=== PATIENT | female | born 1995 | race Caucasian/White ===

== ENCOUNTER 2024-05-27 18:46 | Outpatient (OUT) | payer OTHER, SELFPAY ==
--- NOTE | 2024-05-27 18:56 | US_ITS ---
The [address] [address] Patient Name: ANNE GREGORY MRN: [id number] date: 1995 Sex: F Assigned Patient Location: Current Patient Location: Accession/Order Number: [id number] Exam Date: 05/27/2024 19:00 Report Date: 05/30/2024 09:03 At the request of: RUT CONNER Procedure: US OB growth EXAMINATION: US OB growth HISTORY: RELATED CONDITION IN THIRD TRIMESTER O26.93 COMPARISON: No relevant comparison available. FINDINGS: Heart Rate: 129.81 bpm Amniotic Fluid Volume: 15.5 cm; normal range Number: 1 Position: CEPHALIC BIOMETRY: BPD: 7.52 cm; 30 weeks 1 day; 78.20 % HC: 27.79 cm; 30 weeks 3 days; 64.70 % AC: 24.71 cm; 29 weeks 0 days; 45.80 % FL: 5.09 cm; 27 weeks 2 days; 5 % EFW: 1253.94 g; 28 % FL/AC: 20.59 FL/BPD: 67.64 HC/AC: 1.12 GESTATIONAL AGE: Age by EDC: 28 weeks 6 days CARMEN by EDC: 2024-08-13 Age by US: 29 weeks 2 days CARMEN by US: 2024-08-10 US/US OB growth IMPRESSION: 1. Single live intrauterine with growth detailed above. 2. Femur length is at 5th percentile. Electronically authenticated by: JELLY CHIANG Date: 05/30/2024 09:03
== END 2024-05-27 18:47 | disposition home or self-care (01) ==
PROVIDERS: Visit Provider Midwife
DX: O26.93 Pregnancy related conditions, unspecified, third trimester (principal); Z3A.28 28 weeks gestation of pregnancy
CPT/HCPCS: 76816

== ENCOUNTER 2024-08-02 10:06 | Inpatient (IN) | payer OTHER, SELFPAY ==
[2024-08-02] VITALS (12 sets, daily range): BP systolic 111–146; BP diastolic 71–86; PULSE 49–71; TEMP 36–36.8
--- OUTSIDE RECORDS SUMMARY | 2024-08-02 10:28 | XMS_ITS | CCD ---
Author Organization [facility] Care Team Providers [employer] Professor Name Role Phone BRAD GILES Unavailable Unavailable BRAD GILES Unavailable Unavailable MD Brad Giles Attending Provider [phone] PCP, No Primary Care Provider UnavailMD Brad Yates Attending Provider [phone] PCP, No Primary Care Provider MD Brad Corbin Primary Care Provider MD Brad Giles Primary Care Provider [phone] MD Brad Giles Attending Provider [phone] MD Brad Giles Admit Provider Brad Giles Attending Unavailable PCP, No Primary Care Unavailable Brad Giles Attending Unavailable Tisha, Brad Primary Care Unavailable Brad Giles Attending Unavailable Tisha, Brad Primary Care Unavailable Brad Giles Attending Unavailable Tisha, Brad Primary Care Unavailable Brad Giles Admitting Unavailable Unavailable Primary Care Provider UnavailEleanor Olmstead Primary Care Provider [phone] RUT COLE Attending Unavailable FLORO, RUT L Referring Unavailable FLORO, RUT L Attending Unavailable FLORO, RUT L Attending Unavailable FLORO, URT L Attending Unavailable FLORO, RUT L Attending Unavailable FLORO, RUT L Referring Unavailable FLORO, RUT L Attending Unavailable FLORO, RUT L Attending Unavailable FLORO, RUT L Referring Unavailable FLORO, RUT L Attending Unavailable FLORO, RUT L Attending Unavailable Allergies Allergy Classification Reported Allergen(s) Allergy Type Date of Onset Reaction(s) Facility (20 sources) Amoxicillin Drug Allergy 11-02-2019 [facility] Medications Current Medications Medication Drug Class(es) Dates Sig (Normalized) Sig (Original) Prenat.Vits,Kirsten,Mi z-Vhqz-Iuctc (1 source) Start: 08-12-2023 take 1 tablet by mouth once daily Prenat.Vits,Kirsten,M yz-Gguo-Wwlwx Active 1 TAB PO Daily August 12, 2023 12:00am Uyynujgn-Qzb-Dc-FA ( 1 + IRON PO) (20 sources) Vvjhsgon-Zjg-Ki-F A ( 1 + IRON PO) Take by mouth Active sertraline 100 mg oral tablet (20 sources) Serotonin Reuptake Inhibitor Start: 12-10-2023 End: 06-07-2024 take 1 tablet by mouth in the morning sertraline (Zoloft) 100 MG tablet Take 100 mg by mouth in the morning. 12/10/2023 Active Start: 08-12-2023 take 100 mg by mouth once roland y Sertraline Active 100 MG PO Daily August 12, 2023 12:00am Problems Problem Classification Problem Date Documented Da te Episodic/Chronic Menstrual disorders (2 sources) Amenorrhea; Translations: [Amenorrhea, unspecified] 12-23-2023 Chronic Other complications of (4 sources) Finding related to ; Translations: [ related conditions, unspecified, second trimester] 03-07-2024 Episodic Other and delivery including normal (18 sources) Vaginal delivery; Translations: [Term ] Onset: 01-20-2023 08-14-2023 Episodic Other screening for suspected conditions (not mental disorders or infectious disease) (4 sources) Patient encounter status; Translations: [Encounter for screening for diabetes mellitus] 05-09-2024 Episodic Spondylosis; intervertebral disc disorders; other back problems (2 sources) Low back pain; Translations: [Low back pain, unspecified back pain laterality, unspecified chronicity, unspecified whether sciatica present] 06-14-2024 Episodic Unclassified (2 sources) Labor finding; Translations: [Active labor] 08-12-2023 Results Test Name Value Interpretation Reference Range Facility US OB FOLLOW UP TRANSABDOMIN AL APPROACHon 07-05-2024 US OB FOLLOW UP TRANSABDOMINAL APPROACH TITLE OF EXAM: OB Ultrasound: REASON FOR EXAM: Recheck femur length. COMPARISON: 03/22/2024 TECHNIQUE: Grayscale and M-mode Doppler imaging is performed. FINDINGS: heart rate: 143 bpm ANIKET: 13.2 cm (7.9-24.9) BPD: 8.5 cm HC: 31.0 cm AC: 30.5 cm FL: 6.6 cm GA for sonogram: 33.9 wk (31.5-36.4) CARMEN: 08/11/2024 Weight Estimate: Weight: 2402 gm / 5 lbs, 4 oz (5972-8316 gm) Hadlock Normal: 2543 gm (5412-7155 gm) Hadlock Wt%: 34% for 34.8 wk (GA selected) 43% for 34.4 wks (LMP) Age by LMP: 34 w 3 d Age US today: 34 w 2 d CARMEN by LMP: 08/13/2024 CARMEN US today: 08/14/2024 Gestation: Single Position: Cephalic Placental Location: Anterior Placental Grade: 2 Somatic Movement: Yes Fluid-filled stomach noted. Beating heart is demonstrated with rate of 143 bpm. IMPRESSION: 1. Single live intrauterine gestation in cephalic position estimated at 33.9 weeks. This is concordant with the provided clinical dates and the prior ultrasound. 2. Growth parameters appear generally symmetric. Dictated and transcribed 07/05/24/dpd This report has been electronically signed and approved by the interpreting radiologist. Normal Not Available US OB GROWTHon 05-30-2024 [place] [address] Ultrasound Report Signed Patient: ANNE GREGORY MR#: [id number] : 1995 Acct:[id number] Age/Sex: 29 / F ADM Date: 05/27/24 Loc: US Attending Dr: RUT COLE APRN, CNM Ordering Physician: RUT COLE APRN, CNM Date of Service: 05/27/24 Procedure(s): US OB growth Accession Number(s): [id number] cc: RUT COLE APRN, CNM; Physician,Non-Staff M.D. The [address] [address] Patient Name: ANNE GREGORY MRN: [id number] date: 1995 Sex: F Assigned Patient Location: US Current Patient Location: Accession/Order Number: [id number] Exam Date: 05/27/2024 19:00 Report Date: 05/30/2024 09:03 At the request of: RUT COLE Procedure: US OB growth EXAMINATION: US OB growth HISTORY: RELATED CONDITION IN THIRD TRIMESTER O26.93 COMPARISON: No relevant comparison available. FINDINGS: Heart Rate: 129.81 bpm Amniotic Fluid Volume: 15.5 cm; normal range Number: 1 Position: CEPHALIC BIOMETRY: BPD: 7.52 cm; 30 weeks 1 day; 78.20 % HC: 27.79 cm; 30 weeks 3 days; 64.70 % AC: 24.71 cm; 29 weeks 0 days; 45.80 % FL: 5.09 cm; 27 weeks 2 days; 5 % EFW: 1253.94 g; 28 % FL/AC: 20.59 FL/BPD: 67.64 HC/AC: 1.12 GESTATIONAL AGE: Age by EDC: 28 weeks 6 days CARMEN by EDC: 2024-08-13 Age by US: 29 weeks 2 days CARMEN by US: 2024-08-10 US/US OB growth IMPRESSION: 1. Single live intrauterine with growth detailed above. 2. Femur length is at 5th percentile. Electronically authenticated by: NEERAJ KHALIL Date: 05/30/2024 09:03 Dictated By: Neeraj Khalil M.D. Signed By: 05/30/24905 DD/ 2 TD/TT: Administrative Assistant Coordinator: [facility] Radiology, Radiologist, MD - 05/31/2024 [place] [address] Ultrasound Report Signed Patient: ANNE GREGORY MR#: [id number] : 1995 Acct:[id number] Age/Sex: 29 / F ADM Date: 05/27/24 Loc: US Attending Dr: RUT COLE APRN, CNM Ordering Physician: RUT COLE APRN, CNM Date of Service: 05/27/24 Procedure(s): US OB growth Accession Number(s): [id number] cc: RUT COLE APRN, CNM; Physician,Non-Staff [place] [address] Patient Name: ANNE GREGORY MRN: [facility]:[id number] date: 1995 Sex: F Assigned Patient Location: Current Patient Location: Accession/Order Number: [id number] Exam Date: 05/27/2024 19:00 Report Date: 05/30/2024 09:03 At the request of: RUT COLE Procedure: US OB growth EXAMINATION: US OB growth HISTORY: RELATED CONDITION IN THIRD TRIMESTER O26.93 COMPARISON: No relevant comparison available. FINDINGS: Heart Rate: 129.81 bpm Amniotic Fluid Volume: 15.5 cm; normal range Number: 1 Position: CEPHALIC BIOMETRY: BPD: 7.52 cm; 30 weeks 1 day; 78.20 % HC: 27.79 cm; 30 weeks 3 days; 64.70 % AC: 24.71 cm; 29 weeks 0 days; 45.80 % FL: 5.09 cm; 27 weeks 2 days; 5 % EFW: 1253.94 g; 28 % FL/AC: 20.59 FL/BPD: 67.64 HC/AC: 1.12 GESTATIONAL AGE: Age by EDC: 28 weeks 6 days CARMEN by EDC: 2024-08-13 Age by US: 29 weeks 2 days CARMEN by US: 2024-08-10 US/US OB growth IMPRESSION: 1. Single live intrauterine with growth detailed above. 2. Femur length is at 5th percentile. Electronically authenticated by: NEERAJ KHALIL Date: 05/30/2024 09:03 Dictated By: Neeraj Khalil M.D. Signed By: 05/30/24905 DD/ 2 TD/TT: Administrative Assistant Coordinator: [facility] Radiology Study observation (narrative) [facility] OB GROWTHOrdered By: Crystal richardoghaylee Radiology on 05-30-2024 [facility] Work Phone: US OB 14+ WEEKS ANATOMY SCAN on 03-21-2024 US OB 14+ WEEKS ANATOMY SCAN TITLE OF EXAM: OB Ultrasound: REASON FOR EXAM: Survey. TECHNIQUE: Grayscale and color Doppler imaging is performed. Measurements: heart rate: 143 bpm ANIKET: 13.3 cm (9.2-21.1) BPD: 4.3 cm HC: 16.9 cm AC: 14.2 cm FL: 3.0 cm GA for sonogram: 19.3 wk (17.8-20.7) Cervix length: 4.1 cm CARMEN: 08/11/2024 Weight Estimate: Weight: 291 gm / 0 lbs, 10 oz (248-334 gm) Hadlock Normal: 317 gm (263-371 gm) Hadlock Wt%: 27% for 19.8 wks CLINICAL SUMMARY: A single intrauterine is noted in kristin breech presentation. Four chamber heart is observed with a heart rate of 143 BPM. size is normal. growth: Consistent with normal growth. motion and organs seen: Normal intracranial anatomy is seen. tone is noted. body and limb movements are observed. spine, limbs, bladder, kidneys, and stomach are observed and within normal limits. Umbilical cord insertion and three vessel cord are identified and within normal limits. bowel, lungs, genitalia, four limbs are visualized and normal in appearance. Placenta is located anteriorly. Placenta is Grade 0/III Amniotic fluid volume is normal. Dictated and transcribed 03/22/24/dpd This report has been electronically signed and approved by the interpreting radiologist. Normal Not Available HCG ( test) Ql (U)o n 12-23-2023 Interpretation and review of laboratory results Abnormal [facility] Preg Test, Ur Positive [facility] OB < 14 WEEKS EARLYon US OB < 14 WEEKS EARLY TITLE OF EXAM: OB Ultrasound: REASON FOR EXAM: Dating. TECHNIQUE: Grayscale imaging is performed. Measurements: heart rate: 134 bpm Sac: 1.5 cm CRL: 0.9 cm GA for sonogram: 6.9 wk (06.4-07.5) CARMEN: 08/11/2024 Maternal Anatomy: Uterus: 9.7 x 7.0 x 5.4 cm Cervix: 3.9 cm Left Ovary: 2.7 x 2.2 x 2.2 cm Vol (cc): 6.8 Clinical Summary: Early intrauterine is seen with positive cardiac activity. heart is observed with a heart rate of 134 BPM. Yolk sac is identified. Rt ovary obscured. TECH NOTES: UT hypoechoic area 1.2 x 0.9 x 0.7 cm, probably tiny subchorionic hemorrhage. Dictated and transcribed 12/24/23/dpjessa This report has been electronically signed and approved by the interpreting radiologist. Electronically Signed Brad Pope M.D. 2023-12-24 16:43:34 Normal Not Available MARIJUANA, GCMS, URINEon MARIJUANA, GCMS, URINE 140 ng/mL Normal [facility] Comment on above: Result Comment: Brie conti Metabolite detected is consistent with exposure to Marijuana (THC) and/or hemp derived products. Some jurisdictions do not include hemp within the definition of Marijuana. Limit of quantitation: Marijuana Metabolite 5 ng/mL Reference Range: negative This test was developed and its analytical performance characteristics have been determined by [employer] [place], [place]. It has not been cleared or approved by the U.S. Food and Drug Administration. This assay has been validated pursuant to the CLIA regulations and is used for clinical purposes. Test Performed by [facility], [employer] [facility], [address] [place] [address] Jayesh Jackson M.D., Ph.D., Director of Laboratories , CLIA [id number] Performed By: #### M TREY [id number] ####[facility] [place] [address] PLiana 08-14-2023 P.DS [place] [address] [place] [address] Discharge Summary Signed Patient Name: Anne Gregory [id number] Date of : 1995 Age/Sex: 28 / F Location: OB Department Attending physician: Brad Giles MD DS: Diagnosis Discharge Diagnosis (1) Term : Status: Acute (2) Active labor: Status: Acute Procedures Performed Other Procedures Performed: Spontaneous vaginal delivery Exam: OB Physical Exam Vital signs: Vital Signs - 24 hr 08/13/23 14:15 08/13/23 20:00 08/14/23 03:15 Temperature 98.6 F 98.9 F 98.6 F Pulse Rate [Right] 61 74 64 Respiratory Rate 16 18 16 Blood Pressure [Right Arm] 125/76 129/85 114/69 Oxygen Delivery Method Room Air Room Air Room Air Routine Respiratory Exam Comments: Clear to auscultation Routine Cardiovascular Exam Comments: Regular rate and rhythm without murmur Routine Abdominal Exam Comments: Uterus 3 cm below the umbilicus. Firm and nontender. Routine Extremities Exam Comments: Homans' sign negative. No pedal edema. Discharge Plan Admission Infomation Date of Admission: 08/12/23 14:55 Primary Care Provider: Brad Giles Attending Provider: Brad Giles Discharge (Provider) Patient Disposition: Home, Self-Care Discharge Orders: Discharge/Release Order (Routine); Ordered 08/14/23 Ordered By: Brad Giles Condition: Good Assessment (Hospital Narrative): Patient is a 28-year-old 3 para 2 a positive white female who was admitted with active labor. She had artificial rupture membranes performed at 6 cm dilatation and progressed to spontaneous vaginal delivery without complications. course was uncomplicated. hemoglobin was 11.2. Patient was discharged in good condition. Discharge Medications: Continued sertraline 100 mg tablet 100 mg PO DAILY prenat.vits,kirsten,min -iron-folic Tablet 1 tab PO DAILY Activity: may climb stairs and september shower Diet: regular diet Follow-Up Orders Follow-Up Appointments: Brad Giles MD [Primary Care Provider] - 6 Weeks Dictated By: Brad Giles MD 08/14/23 0800 Signed By: 08/14/23 0801 Cosigned By (if applicable): [id number] cc: Brad Giles MD Normal [facility] Blood erythrocytes count (nu mber/volume)Ordered By: Brad Giles on 08-13-2023 RBC (Bld) [#/Vol] 3.84 10'6/uL Low 3.85-4.[address] [facility] Complete Blood Count no Diff on 08-13-2023 MCH (RBC) [Entitic mass] 29.1 pg Normal 27.8-33.2 [facility] Comment on above: Performed By: #### C BCND ####[place] [address] [facility] [place] [address] Erythrocyte distribution width (RBC) [Ratio] 12.4 % Normal 12.2-15.8 [facility] Comment on above: Performed By: #### C BCND ####[place] [address] [place] [address] Hematocrit (Bld) [Volume fraction] 33.0 % Low 34.6-44.1 [facility] Comment on above: Performed By: #### C BCND ####[place] [address] [facility] [place] [address] Hemoglobin (Bld) [Mass/Vol] 11.2 g/dL Low 11.7-14.9 [facility] Comment on above: Performed By: #### C BCND ####[place] [address] [address] [facility] [place] [address] MCV (RBC) [Entitic vol] 85.9 fL Normal 83.0-97.4 [facility] Comment on above: Performed By: #### C BCND ####[place] [address] [address] [facility] [place] [address] Mean Corpuscular HGB Conc 33.9 g/dL Normal 32.7-34.8 [facility] Comment on above: Performed By: #### C BCND ####[place] [address] [address] [facility] [place] [address] Platelet Count 203 10'3/uL Normal 122-359 [facility] Comment on above: Performed By: #### C BCND ####[place] [address] [address] [facility] [place] [place] [address] Platelet mean volume (Bld) [Entitic vol] 10.7 fL High 7.6-10.6 [facility] Comment on above: Performed By: #### C BCND ####[place] [address] [place] [address] Red Blood Count 3.84 10'6/uL Low 3.85-4.88 [facility] Comment on above: Performed By: #### C BCND ####[facility] [facility] [place] [address] White Blood Count 10.9 10'3/uL High 3.2-9.3 [facility] Comment on above: Performed By: #### C BCND ####[facility] [address] [facility] [place] [address] Determination of erythrocyte mean corpuscular volume (MCV)Ordered By: Brad Giles on 08-13-2023 MCV (RBC) [Entitic vol] 85.9 fL 83.0-97.4 F [facility] Histamine release from basop hils measurementOrdered By: Brad Giles on 08-13-2023 Hemoglobin (Bld) [Mass/Vol] 11.2 g/dL Low 11.7-14.9 [facility] Laboratory - Hematology and Cell countsOrdered By: Brad Giles on 08-13-2023 Erythrocyte distribution width (RBC) [Ratio] 12.4 % 12.2-15.8 [facility] MCH (RBC) [Entitic mass] 29.1 pg 27.8-33.2 [facility] MCHC (RBC) [Mass/Vol] 33.9 g/dL 32.7-34.8 [facility] Platelet mean volume (Bld) [Entitic vol] 10.7 fL High 7.6-10.6 [facility] No Panel InformationOrdered By: Brad Giles on 08-13-2023 White Blood Count 10.9 10'3/uL High 3.2-9.[address] [facility] P.PNon 08-13-2023 P.PN [facility] [address] [place] [address] Progress Note Signed Patient Name: Anne Gregory [id number] Date of : 1995 Age/Sex: 28 / F Location: OB Department Attending physician: Brad Giles MD Subjective Subjective Date of admission: 08/12/23 Date of exam: 08/13/23 Subjective Narrative: Patient reports mild cramping. She has had no significant lochia. Hemoglobin this morning is 11.2 Exam: OB Physical Exam Vital signs: Vital Signs - 24 hr 08/12/23 15:37 08/12/23 15:00 08/12/23 16:32 Temperature 98.6 F Pulse Rate 63 61 Pulse Rate [Right] Respiratory Rate Blood Pressure 122/80 136/83 Blood Pressure [Right Arm] Oxygen Delivery Method 08/12/23 19:09 08/12/23 19:44 08/12/23 19:46 Temperature Pulse Rate 55 L 70 59 L Pulse Rate [Right] Respiratory Rate Blood Pressure 136/72 148/89 H 139/67 Blood Pressure [Right Arm] Oxygen Delivery Method 08/12/23 20:01 08/12/23 20:16 08/12/23 20:32 Temperature Pulse Rate 51 L 75 54 L Pulse Rate [Right] Respiratory Rate Blood Pressure 142/87 H 141/76 H 139/81 Blood Pressure [Right Arm] Oxygen Delivery Method 08/12/23 20:47 08/12/23 20:49 08/12/23 21:17 Temperature Pulse Rate 53 L 53 L 52 L Pulse Rate [Right] Respiratory Rate Blood Pressure 172/92 H 132/67 121/73 Blood Pressure [Right Arm] Oxygen Delivery Method 08/12/23 21:31 08/12/23 21:47 08/13/23 02:59 Temperature Pulse Rate 54 L 63 55 L Pulse Rate [Right] Respiratory Rate Blood Pressure 119/71 132/87 116/73 Blood Pressure [Right Arm] Oxygen Delivery Method 08/12/23 15:32 08/13/23 03:08 08/13/23 07:54 Temperature 98.6 F 98.6 F 98.7 F Pulse Rate Pulse Rate [Right] 61 63 53 L Respiratory Rate 16 18 16 Blood Pressure Blood Pressure [Right Arm] 136/83 116/73 140/93 Oxygen Delivery Method Room Air Room Air Room Air Routine Abdominal Exam Comments: Uterus 3 cm below the umbilicus and is firm and nontender Routine Extremities Exam Comments: Homans' sign negative. No pedal edema. Objective Data Labs Labs: Laboratory Results - last 24 hr 08/12/23 08/12/23 08/12/23 14:40 15:11 16:19 WBC 7.7 RBC 4.09 Hgb 11.8 Hct 34.5 L MCV 84.4 MCH 28.9 MCHC 34.2 RDW 12.4 Plt Count 221 MPV 10.4 Neut % (Auto) 60 Lymph % (Auto) 27 [place] % (Auto) 11 Eos % (Auto) 2 Baso % (Auto) 0 Lymph # (Auto) 2.0 [place] # (Auto) 0.9 H Eos # (Auto) 0.1 Baso # (Auto) 0.0 L Absolute Neutrophils 4.6 PT 9.5 INR 0.93 APTT 25.1 Membrane Rupture Negative Opiates Screen Negative Barbiturate Screen Negative Phencyclidine Screen Negative Amphetamines Screen Negative Benzodiazepines Screen Negative Cocaine Screen Negative Marijuana (THC) Screen Positive H Blood Type A Positive Antibody Screen Negative 08/13/23 05:18 WBC 10.9 H RBC 3.84 L Hgb 11.2 L Hct 33.0 L MCV 85.9 MCH 29.1 MCHC 33.9 RDW 12.4 Plt Count 203 MPV 10.7 H Neut % (Auto) Lymph % (Auto) [place] % (Auto) Eos % (Auto) Baso % (Auto) Lymph # (Auto) [place] # (Auto) Eos # (Auto) Baso # (Auto) Absolute Neutrophils PT INR APTT Membrane Rupture Opiates Screen Barbiturate Screen Phencyclidine Screen Amphetamines Screen Benzodiazepines Screen Cocaine Screen Marijuana (THC) Screen Blood Type Antibody Screen Assessment and Plan Assessment and plan (1) Term : Status: Acute (2) Active labor: Status: Acute Plan Continue routine care Dictated By: Brad Giles MD 08/13/2350 Signed By: 08/13/2352 Cosigned By (if applicable): [id number] cc: Brad Giles MD Normal [facility] Platelet count bloodOrdered By: Brad Giles on 08-13-2023 Platelets (Bld) [#/Vol] 203 10'3/uL 122-359 [facility] Amnisure ROMon 08-12-2023 Amnisure ROM Negative Normal [facility] Comment on above: Result Comment: RESU LTS CALLED TO PEG/OB BY Flora Hatch at 1505 on 08/12/23. Performed By: #### A MNI #### [facility] [address] [place] [address] Amphetamines [Presence] in U rine by Screen methodOrdered By: Brad Giles on 08-12-2023 Amphetamines Screen Ql (U) Negative [facility] Basophils Auto (Bld) [#/Vol] Ordered By: Brad Giles on 08-12-2023 Basophils (Bld) [#/Vol] 0.0 10'3/uL Low 0.1-0.2 [facility] Basophils/100 WBC Auto (Bld) Ordered By: Brad Giles on 08-12-2023 Basophils/100 WBC (Bld) 0 % 0-1 F [facility] Benzodiazepines Screen Ql (U )Ordered By: Brad Giles on 08-12-2023 Benzodiazepines Ql (U) Negative [facility] Blood prothrombin time (PT) by coagulation assayOrdered By: Brad Giles on 08-12-2023 PT Coag (Bld) [Time] 9.5 s 9.5-10.9 [facility] Cervicovaginal discharge rap id detection of placental alpha microglobulin-1 by immunoOrdered By: Brad Giles on 08-12-2023 Rnhmb-9-Fvxzlhondcqvf.p lacental Ql (Vag fld) Negative [facility] Comment on above: RESULTS CALLED TO PE G/OB BY Flora Hatch at 1505 on 08/12/23. Complete Blood Count with Di ffon 08-12-2023 Basophils Absolute Auto 0.0 10'3/uL Low 0.1-0.2 [facility] Comment on above: Performed By: #### C BCD #### [facility] [address] [place] [address] Basophils/100 WBC (Bld) 0 % Normal 0-1 [facility] Comment on above: Performed By: #### C BCD #### [facility] [address] [place] [address] Eosinophils Absolute Auto 0.1 10'3/uL Normal 0.0-0.4 [facility] Comment on above: Performed By: #### C BCD #### [facility] [address] [place] [address] Eosinophils/100 WBC (Bld) 2 % Normal 2-5 [facility] Comment on above: Performed By: #### C BCD #### [place] [address] [place] [address] Erythrocyte distribution width (RBC) [Ratio] 12.4 % Normal 12.2-15.8 [facility] Comment on above: Performed By: #### C BCD #### [place] [address] [place] [address] Hematocrit (Bld) [Volume fraction] 34.5 % Low 34.6-44.1 [facility] Comment on above: Performed By: #### C BCD #### [place] [address] [place] [address] Hemoglobin (Bld) [Mass/Vol] 11.8 g/dL Normal 11.7-14.9 [facility] Comment on above: Performed By: #### C BCD #### [place] [address] [place] [address] Lymphocytes Absolute Auto 2.0 10'3/uL Normal 0.5-3.5 [facility] Comment on above: Performed By: #### C BCD #### [place] [address] [place] [address] Lymphocytes/100 WBC (Bld) 27 % Normal 20-35 [facility] Comment on above: Performed By: #### C BCD #### [place] [address] [place] [address] MCH (RBC) [Entitic mass] 28.9 pg Normal 27.8-33.2 [facility] Comment on above: Performed By: #### C BCD #### [facility] [address] [place] [address] MCV (RBC) [Entitic vol] 84.4 fL Normal 83.0-97.4 [facility] Comment on above: Performed By: #### C BCD #### [facility] [address] [place] [address] Mean Corpuscular HGB Conc 34.2 g/dL Normal 32.7-34.8 [facility] Comment on above: Performed By: #### C BCD #### [facility] [address] [place] [address] Monocytes Absolute Auto 0.9 10'3/uL High 0.2-0.8 [facility] Comment on above: Performed By: #### C BCD #### [facility] [address] [place] [address] Monocytes/100 WBC (Bld) 11 % Normal 4-12 [facility] Comment on above: Performed By: #### C BCD #### [facility] [address] [place] [address] Neutrophil # 4.6 10'3/uL Normal 1.5-5.6 [facility] Comment on above: Performed By: #### C BCD #### [facility] [address] [place] [address] Neutrophils/100 WBC (Bld) 60 % Normal 41-72 [facility] Comment on above: Performed By: #### C BCD #### [facility] [address] [place] [address] Platelet Count 221 10'3/uL Normal 122-359 [facility] Comment on above: Performed By: #### C BCD #### [facility] [address] [place] [address] Platelet mean volume (Bld) [Entitic vol] 10.4 fL Normal 7.6-10.6 [facility] Comment on above: Performed By: #### C BCD #### [facility] [address] [place] [address] Red Blood Count 4.09 10'6/uL Normal 3.85-4.88 [facility] Comment on above: Performed By: #### C BCD #### [facility] [address] [place] [address] White Blood Count 7.7 10'3/uL Normal 3.2-9.3 [facility] Comment on above: Performed By: #### C BCD #### [facility] [address] [place] [address] Drug Screen Urineon 08-12-19 24 Amphetamine Screen Negative Normal [facility] Comment on above: Order Comment: Addit ional Information - Run specimen if pt had no care - Abruption placenta in women not known to have hypertensive disease - Known drug use and/or treatment for drug use during Urine Drug Screen = Amphetamines, Marijuana, PCP, Barbituates, Benzodiazapines, Opiates, Cocaine Performed By: #### T RIAGE #### [facility] [address] [place] [address] Barbiturate Screen Negative Normal [facility] Comment on above: Order Comment: Addit ional Information - Run specimen if pt had no care - Abruption placenta in women not known to have hypertensive disease - Known drug use and/or treatment for drug use during Urine Drug Screen = Amphetamines, Marijuana, PCP, Barbituates, Benzodiazapines, Opiates, Cocaine Performed By: #### T RIAGE #### [facility] [address] [place] [address] Benzodiazepine Screen Negative Normal [facility] Comment on above: Order Comment: Addit ional Information - Run specimen if pt had no care - Abruption placenta in women not known to have hypertensive disease - Known drug use and/or treatment for drug use during Urine Drug Screen = Amphetamines, Marijuana, PCP, Barbituates, Benzodiazapines, Opiates, Cocaine Performed By: #### T RIAGE #### [facility] [address] [place] [address] Cannabinoid Screen Positive Abnormal [facility] Comment on above: Order Comment: Addit ional Information - Run specimen if pt had no care - Abruption placenta in women not known to have hypertensive disease - Known drug use and/or treatment for drug use during Urine Drug Screen = Amphetamines, Marijuana, PCP, Barbituates, Benzodiazapines, Opiates, Cocaine Performed By: #### T RIAGE #### [facility] [address] [place] [address] Cocaine Ql (U) Negative Normal [facility] Comment on above: Order Comment: Addit ional Information - Run specimen if pt had no care - Abruption placenta in women not known to have hypertensive disease - Known drug use and/or treatment for drug use during Urine Drug Screen = Amphetamines, Marijuana, PCP, Barbituates, Benzodiazapines, Opiates, Cocaine Performed By: #### T RIAGE #### [place] [id number] [place] [address] Opiate Screen Negative Normal [facility] Comment on above: Order Comment: Addit ional Information - Run specimen if pt had no care - Abruption placenta in women not known to have hypertensive disease - Known drug use and/or treatment for drug use during Urine Drug Screen = Amphetamines, Marijuana, PCP, Barbituates, Benzodiazapines, Opiates, Cocaine Performed By: #### T RIAGE #### [place] [address] [place] [address] Phencyclidine Ql (U) Negative Normal [facility] Comment on above: Order Comment: Addit ional Information - Run specimen if pt had no care - Abruption placenta in women not known to have hypertensive disease - Known drug use and/or treatment for drug use during Urine Drug Screen = Amphetamines, Marijuana, PCP, Barbituates, Benzodiazapines, Opiates, Cocaine Performed By: #### T RIAGE #### [place] [address] [place] [address] Eosinophils/100 WBC Auto (Bl d)Ordered By: Brad Giles on 08-12-2023 Eosinophils/100 WBC (Bld) 2 % 2-5 [facility] Histamine release from basop hils measurementOrdered By: Brad Giles on 08-12-2023 Histamine release from basophils measurement 0.1 10'3/uL 0.0-0.4 [facility] INR in Blood by Coagulation assayOrdered By: Brad Giles on 08-12-2023 INR Coag (Bld) [Relative time] 0.93 {INR} 0.86-1.15 [facility] Comment on above: Suggested INR Ranges for Oral Anticoagulant Therapy Condition Recommended INR _Deep Vein Thrombosis ................... 2.0 - 3.0Acute Myocardial Infarction ............ 3.0 - 4.5Atrial Fibrillation .................... 2.0 - 3.0Cardiac Valve Replacement (tissue) ..... 2.0 - 3.0Cardiac Valve Replacement (mechanical) . 2.5 - 3.5 Laboratory - Hematology and Cell countsOrdered By: Brad Giles on 08-12-2023 Lymphocytes/100 WBC (Bld) 27 % 20-35 [facility] Monocytes Auto (Bld) [#/Vol] Ordered By: Brad Giles on 08-12-2023 Monocytes (Bld) [#/Vol] 0.9 10'3/uL High 0.2-0.8 [facility] Monocytes/100 WBC Auto (Bld) Ordered By: Brad Giles on 08-12-2023 Monocytes/100 WBC (Bld) 11 % 4-12 F [facility] Neutrophils/100 WBC Manual c nt (Bld)Ordered By: Brad Giles on 08-12-2023 Neutrophils/100 WBC (Bld) 60 % 41-72 [facility] No Panel InformationOrdered By: Brad Giles on 08-12-2023 Barbiturate Screen Negative [facility] Cocaine Screen Negative [facility] Absolute Neutrophil 4.6 10'3/uL 1.5-5.6 [facility] Lymphocytes # (Auto) 2.0 10'3/uL 0.5-3.5 [facility] P.HPon 08-12-2023 P.HP [facility] [address] [place] [address] History Physical Report Signed Patient Name: Anne Gregory [id number] Date of : 1995 Age/Sex: 28 / F Location: OB Department Attending physician: Brad Giles MD OB H P: HPI History of Present Illness Date of admission: 08/12/23 Date of exam: 08/12/23 Chief complaint: : 3 Para: 2 Date of last menstrual period: 10/13/22 Estimated date of delivery: 07/20/23 Gestational age based on last menstrual period: 43 Narrative: Location Quality Severity/Quantity Duration/Onset Timing/Frequency Context Factors that make it better/worse Associated signs symptoms Anne Gregory is a 28 year old F 3, 2 A+ white female at 40 weeks gestation who is has been complicated by group B strep culture positivity. She was seen in the office today and me mbranes were stripped at that time she was 3 to 4 cm dilated 100% effaced. She then came to the OB department to fill out paperwork and felt increased pelvic pressure she was found to be 5 cm dilated. She is having irregular contractions. She is now admitted to labor care. Home Meds and Allergies Home Medications Medication Instructions Recorded Confirmed Type prenat.vits,kirsten,min -iron-folic 1 tab PO DAILY 08/12/23 08/12/23 History sertraline 100 mg tablet 100 mg PO DAILY 08/12/23 08/12/23 History Allergies Allergy/AdvReac Type Severity Reaction Status Date / Time No Known Drug Allergies Allergy Verified 08/12/23 15:51 Review of Systems Narrative: Eyes: No blurred vision Ears, nose, mouth and throat: Patient denies sore throat or difficulty swallowing. Cardiovascular: No chest pain, heart palpitations or pedal edema Respiratory: No shortness of breath or cough Gastrointestinal: No nausea, vomiting or diarrhea Genitourinary: No dysuria or urinary frequency Musculoskeletal: No joint swelling or pain Skin: No rashes Neurologic: Patient denies focal sensory or motor deficit. No headache Psychiatric: Fluid thought processes Hematologic/lymphat ic: No swollen glands History PFSH Medical History Anxiety Bowel obstruction Family History Mother Anxiety Bipolar 1 disorder Father Alcohol abuse Father Diabetes mellitus Anxiety Sister Anxiety Son Low platelet count Social History History Provided by: Patient Preferred Language: Faroese Language Assistance Offered: Accepted Language Assistance Provided By: Family/Friend Usual Living Arrangement: With Spouse/Significant Other Anyone at Home Need Help While Hospitalized: No Smoking Status: Never Smoker Other Form of Tobacco Used: Previously Used Years Other Form of Tobacco Used: 2 Second Hand Tobacco Smoke Exposure: No [facility] Smoking Cessation Instructions Provided to Patient: No How Often do you Have a Drink Containing Alcohol: Never How Many Standard Drinks Containing Alcohol do you Have on a Typical Day: None How Often do you Have Six or More Drinks on One Occasion: Never AUDIT-C Alcohol Total Score: 0 Caffeine Use: Yes Non-Prescribed Substance Use: Marijuana (Any Form) Non-Prescribed Substance Use Details: Patient states edible marijuana use a week prior to admission Has Patient Ever Been Admitted to Treatment Facility for Alcohol/Drug Abuse: No Recent Life Stress: No Recent Loss: No Auditory/Visual Hallucinations: No Homicical Thoughts/Plans: No Suicidal Thoughts/Plans: No Hx Psychiatric Treatment: No Primary Care Provider Notified: Provider Aware History of Physical Abuse: No History of Emotional Abuse: No History of Sexual Abuse: No Suspect/Identified Abuse: No Provider Notified of Abuse or Suspected Abuse: No Travel Outside of the Area Within the Last 8 Weeks: No Exposure or Possible Exposure to Illness During Travel: No Employment Status: Self-Employed Current Occupational Exposures/Hazards: No or Spouse of a Living : No Highest Level of School Completed/Degree Received: High School Cultural/Personal/R eligious Beliefs that Affect Patient Care: No Cultural or Hoahaoism Modesty Issues Regarding Care by Staff of the Opposite Sex: No Hoahaoism Items Worn: No Other Factors Affecting Patient Care Experience: No Services Used Prior to Admission: No Prior Services Patient Discharge Plan Description: Return Home Services Needed at Discharge: No Services Needed Arrangement for Transportation Home Needed: No Discharge Planning/Case Management Referral Needed: No Concerns Regarding Hospital Charges: No Exam: OB Physical Exam: Vital signs: Vital Signs - 24 hr 08/12/23 15:37 08/12/23 15:00 08/12/23 16:32 Temperature 98.6 F Pulse Rate 63 61 (more content not included)... Normal [facility] P.PCNon 08-12-2023 P.PCN [facility] [address] [place] [address] Procedure Note Signed Patient Name: Anne Gregory [id number] Date of : 1995 Age/Sex: 28 / F Location: OB Department Attending physician: Brad Giles MD Delivery Method Delivery method: Vaginal- Spontaneous Narrative: Patient was admitted at 5 cm dilatation after stripping of membranes in the office. She progressed to 6 cm dilatation at which time she had artificial rupture membranes with clear fluid being obtained. The monitor strip was category 1 throughout first and second stage of labor. She progressed to complete dilatation with descent of the head culminating in spontaneous vaginal delivery in the HUDSON presentation of a viable male . Infant cried spontaneously and required no resuscitation. And was placed on mother's abdomen after delivery and cord clamping was delayed until 2 minutes of age. Placenta was delivered spontaneously and intact and had a three-vessel cord. Cervix and vagina were explored following delivery of the and no lacerations were noted. Pitocin was given through intravenous fluids following delivery of placenta. Estimated blood loss was 100 mL. Mother had recovered in emergency without complications Baby A Gender: Male Dictated By: Brad Giles MD 08/12/231944 Signed By: 08/12/231947 Cosigned By (if applicable): [id number] cc: Brad Giles MD Normal [facility] Partial Thromboplastin Timeo n 08-12-2023 aPTT Coag (Bld) [Time] 25.1 s Normal 24.5-30.3 [facility] Comment on above: Result Comment: aPTT Therapeutic Range = 45.1-70.7 seconds Performed By: #### P T, PTT #### [facility] [address] [facility] [place] [address] Partial thromboplastin time (PTT) in platelet poor plasmaOrdered By: Brad Giles on 08-12-2023 aPTT Coag (PPP) [Time] 25.1 s 24.5-30.[address] [facility] Comment on above: aPTT Therapeutic Ran ge = 45.1-70.7 seconds Phencyclidine Screen Ql (U)O rdered By: Brad Giles on 08-12-2023 Phencyclidine Ql (U) Negative [facility] Prothrombin Time INRon 08-11 INR Coag (PPP) [Relative time] 0.93 {INR} Normal 0.86-1.15 [facility] Comment on above: Result Comment: [place] INR Ranges for Oral Anticoagulant Therapy Condition Recommended INR Deep Vein Thrombosis ................... 2.0 - 3.0 Acute Myocardial Infarction ............ 3.0 - 4.5 Atrial Fibrillation .................... 2.0 - 3.0 Cardiac Valve Replacement (tissue) ..... 2.0 - 3.0 Cardiac Valve Replacement (mechanical) . 2.5 - 3.5 Performed By: #### P T, PTT #### [facility] [address] [place] [address] PT Coag (PPP) [Time] 9.5 s Normal 9.5-10.9 [facility] Comment on above: Performed By: #### P T, PTT #### [facility] [address] [place] [address] Screening cannabinoid measur ementOrdered By: Brad Giles on 08-12-2023 Cannabinoids Screen Ql (Unknown substance) Positive High [facility] Screening urine opiates dete ctionOrdered By: Brad Giles on 08-12-2023 Opiates Screen Ql (U) Negative [facility] Type and Screenon 08-12-2023 ABO and Rh group Nom (Bld) Blood group A Rh(D) positive Normal [facility] Comment on above: Performed By: #### T S #### ML , Urine Cultureon 07-31-2023 Bacteria identified Cx Nom (U) Urine Culture RESResult: INSInsignificant growth present Normal [facility] Comment on above: Performed By: #### U R #### ML , UA with Reflex Cultureon Amorphous Sediment Urine Present Normal [facility] Comment on above: Performed By: #### U AREFLEX #### [facility] [address] [place] [address] Bacteria Urine TRACE Normal [facility] Comment on above: Performed By: #### U AREFLEX #### [facility] [address] [place] [address] Squamous Epithelial Cell Urine 0-2 Normal [facility] Comment on above: Performed By: #### U AREFLEX #### [facility] [address] [place] [address] Bilirubin Urine Negative Normal Negative [facility] Comment on above: Performed By: #### U AREFLEX #### [facility] [address] [place] [address] Glucose Urine UA Negative Normal Negative [facility] Comment on above: Performed By: #### U AREFLEX #### [facility] [address] [place] [address] Ketones Ql (U) >=80 (Large) Abnormal Negative [facility] Comment on above: Performed By: #### U AREFLEX #### [facility] [address] [place] [address] Nitrite Urine Negative Normal Negative [facility] Comment on above: Performed By: #### U AREFLEX #### [facility] [address] [place] [address] Occult Blood Urine Negative Normal Negative [facility] Comment on above: Performed By: #### U AREFLEX #### [facility] [address] [place] [address] Protein Urine (Multistix) Negative Normal Negative [facility] Comment on above: Performed By: #### U AREFLEX #### [facility] [address] [place] [address] Specific Clay Urine 1.020 Normal 1.005-1.030 [facility] Comment on above: Performed By: #### U AREFLEX #### [facility] [address] [place] [address] Urobilinogen Urine 0.2 EU/dL Normal 0.2-1.0 [facility] Comment on above: Performed By: #### U AREFLEX #### [facility] [address] [place] [address] UA with Reflex CultureOrdere d By: Brad Giles on 07-30-2023 Leukocyte esterase Test strip Ql (U) Negative Normal Negative [facility] Comment on above: Performed By: #### U AREFLEX #### [facility] [address] [place] [address] Urine appearanceOrdered By: Brad Giles on 07-30-2023 Appearance (U) Clear Normal CLEAR [facility] Comment on above: Performed By: #### U AREFLEX #### [facility] [address] [place] [address] Urine colorOrdered By: Brad Giles on 07-30-2023 Color (U) Yellow Normal YELLOW [facility] Comment on above: Performed By: #### U AREFLEX #### [facility] [address] [place] [address] pH of UrineOrdered By: Brad Giles on 07-30-2023 pH (U) 6.0 [pH] Normal 5.5-8.0 [facility] Comment on above: Performed By: #### U AREFLEX #### [facility] [address] [place] [address] Amorphous urine sedimentOrde red By: Brad Giles on 07-29-2023 Amorphous sediment LM Ql (Urine sed) Present [facility] Histamine release from basop hils measurementOrdered By: Brad Giles on 07-29-2023 Glucose (U) [Mass/Vol] Negative Negative [facility] - Chemistry and C hemistry - challengeOrdered By: Brad Giles on 07-29-2023 Bilirubin Ql (U) Negative Negative [facility] Ketones Ql (U) >=80 (large) mg/dL Abnormal Negative [facility] Laboratory - UrinalysisOrder ed By: Brad Giles on 07-29-2023 Nitrite Ql (U) Negative Negative [facility] Protein Ql (U) Negative Negative [facility] No Panel InformationOrdered By: Brad Giles on 07-29-2023 Urine Bacteria Trace /hpf [facility] Occult blood ur QLOrdered By : Brad Giles on 07-29-2023 Hemoglobin Ql (U) Negative Negative [facility] Specific gravity Test strip (U) [Rel density]Ordered By: Brad Giles on 07-29-2023 Specific gravity (U) [Rel density] 1.020 1.005-1.030 [facility] Squamous epithelial cells de tection in urine sediment by light microscopyOrdered By: Brad Giles on 07-29-2023 Epithelial cells.squamous LM Ql (Urine sed) 0-2 /lpf [facility] Urine culture routineOrdered By: Brad Giles on 07-29-2023 Bacteria identified Cx Nom (U) [facility] Urine urobilinogen measureme ntOrdered By: Brad Giles on 07-29-2023 Urobilinogen Ql (U) 0.2 EU/dL 0.2-1.[address] [facility] OBCMon 04-06-2023 [facility] [address] [place] [address] Ultrasound Report Signed Patient Name: Anne Gregory Date of : 1995 Account #:[id number] Age/Sex: 28 / F Location: Attending physician: Brad Giles MD Ordering Provider: Brad Giles MD Date of Service: 04/06/23 Procedure(s): US OB complete HISTORY: care second trimester Study: Complete OB ultrasound dated 04/06/2023. 11:00 a.m. Findings: Live single intrauterine is present with cephalic position and anterior location of the placenta. Cardiac activity is present with a rate of 150 beats per minute. The cervix measures 3 cm in length. Biparietal diameter is 5.4 cm. Head circumference is 20.2 cm. Abdominal circumference is 15.9 cm. Femur length is 3.5 cm. Visualized portions of the brain, spine, kidneys, bladder, stomach, four-chamber heart, three-vessel cord and cord insertion appear normal. IMPRESSION: Live single intrauterine with estimated gestational age of 21-week 6 days. Estimated date of delivery is 08/11/2023. Cephalic position. Estimated weight 14 ounces. Dictated By: Bobby Wong MD Signed By: 04/06/231333 DD/ 30 TD/TT: 04/06/231330 Administrative Assistant Coordinator: KERA Exam/Order Verified? Y Exam Explained to Patient/Family? Y Was Patient Shielded? Is Patient ? Consent Form Completed? Hx Last Menstrual Period: Does Patient have a Diabetic Device? Diabetic Device Type: Was the Diabetic Device Removed? If NO: was Removal Consent form completed? Patient was informed of radiation exposure prior to scan? Verified by Technologist:[id number] Comment: [id number] cc: Brad Giles MD [facility] OB<14WKSon 01-21-2023 OB<14WKS [facility] [address] [place] [place] [address] Ultrasound Report Signed Patient Name: Anne Gregory Date of : 1995 Account #:[id number] Age/Sex: 27 / F Location: US Attending physician: Brad Giles MD Ordering Provider: Brad Giles MD Date of Service: 01/20/23 Procedure(s): US OB <= 14 weeks fetus HISTORY: care first trimester Study: OB ultrasound transabdominal less than 14 weeks dated 01/20/2023. 1821 hours Findings: Live single intrauterine is demonstrated. crown-rump length is 3.6 cm. The gestational sac is round. A rounded yolk sac measures 3.4 mm. Cardiac activity is present with a rate of 172 beats per minute. The left ovary measures 4.7 x 2.8 x 2.4 cm. The right ovary is obscured by bowel gas. IMPRESSION: Live single intrauterine with estimated gestational age of 10 weeks 4 days. Estimated date of delivery is 08/14/2023. Dictated By: Bobby Wong MD Signed By: 01/21/23921 DD/ 8 TD/TT: 01/21/23918 Administrative Assistant Coordinator: KERA Exam/Order Verified? Y Exam Explained to Patient/Family? Y Was Patient Shielded? Is Patient ? Consent Form Completed? Hx Last Menstrual Period: Does Patient have a Diabetic Device? Diabetic Device Type: Was the Diabetic Device Removed? If NO: was Removal Consent form completed? Patient was informed of radiation exposure prior to scan? Verified by Technologist:[id number] Comment: [phone] cc: Brad Giles MD PCP,No Normal [facility] 01-26-2017 [facility] Name: ANNE GREGORY : 1995 Unit: [id number] Age: 21 Attending Physician: BRAD GILES M.D. Pt Location: OB 334 Date of Service: DISCHARGE SUMMARY DATE OF ADMISSION: 01/24/17 DATE OF DISCHARGE: 01/25/17 FINAL DIAGNOSIS: Term , delivered. ADDITIONAL DIAGNOSIS: PROCEDURES PERFORMED: Artificial rupture of membranes. CARE, TREATMENT AND SERVICES PROVIDED: The patient is a 21-year-old II Para I O positive white female with estimated date of delivery 02/02 by dates and ultrasound. She presented to the obstetrical cummins dilated to 5 cm. She had artificial rupture of membranes with clear fluid being obtained. heart tracing was category one throughout labor and delivery. The patient progressed to complete dilatation with descent of the head culminating in spontaneous vaginal delivery in the left occiput anterior presentation of a viable female infant. The infant cried spontaneously and required no resuscitation. Apgars were 9 and 10. Placenta was delivered spontaneously intact and there was a three vessel cord. Cervix and vagina were explored following delivery and no lacerations were noted. Estimated blood loss was 300 mL. Mother and infant recovered in the birthing suite without complications. The patient was given penicillin B intravenously prior to delivery for Group B Strep prophylaxis. Postoperative course was uncomplicated. Hemoglobin was 11.9. Diet and activity were advanced. DISCHARGE DISPOSITION AND DISCHARGE INSTRUCTIONS: The patient was discharged in good condition. See patient discharge instruction sheet. Electronically Signed by: BRAD GILES M.D. 01/27/17 0700 BRAD GILES M.D. Date Dict: 01/26/17 0704 BRAD GILES M.D. Date trans: 01/26/17 1358 [facility] [phone] cc: Normal [facility] CBCon 01-25-2017 Erythrocyte distribution width Auto Ratio (RBC) 13.7 % Normal 12.2-15.8 [facility] Comment on above: Performed By: #### C BCN ####[facility] # [id number] [place] [address] Erythrocytes (RBC) 3.93 10'6/uL Normal 3.85-4.88 [facility] Comment on above: Performed By: #### C BCN ####[facility] # [id number] [place] [address] Hematocrit (HCT) 33.6 % Low 34.6-44.1 [facility] Comment on above: Performed By: #### C BCN ####[facility] # [id number] [place] [address] Hemoglobin mass conc (Bld) 11.3 g/dL Low 11.7-14.9 [facility] Comment on above: Performed By: #### C BCN ####[facility] # [id number] [place] [address] MCH 28.8 pg Normal 27.8-33.2 [facility] Comment on above: Performed By: #### C BCN ####[facility] # [id number] [place] [address] MCH 33.6 g/dL Normal 32.7-34.8 [facility] Comment on above: Performed By: #### C BCN ####[facility] # [id number] [address] [place] [address] MCV 85.7 fL Normal 83.0-97.4 [facility] Comment on above: Performed By: #### C BCN ####[facility] # [id number] [place] [address] Platelet mean volume (PMV) 9.9 fL Normal 7.6-10.6 [facility] Comment on above: Performed By: #### C BCN ####[facility] # [id number] [place] [address] Platelets 172 10'3/uL Normal 122-359 [facility] Comment on above: Performed By: #### C BCN ####[facility] # [id number] [place] [address] WBC (Leukocytes) 10.2 10'3/uL High 3.2-9.3 [facility] Comment on above: Performed By: #### C BCN ####[facility] # [id number] [place] [address] PN-ESon 01-25-2017 [facility] Name: ANNE GREGORY : 1995 Unit: [id number] Age: 21 Attending Physician: BRAD GILES M.D. Pt Location: OB 334 Date of Service: PROGRESS NOTE DATE SEEN: 01/25/17 SUBJECTIVE: The patient delivered yesterday late afternoon. She has been doing well. She is bottle-feeding. She has had some lower normal abdominal cramping. Her bleeding has been normal. She has no difficulty urinating. She has no stitches. OBJECTIVE: Temperature 97.8, pulse 81, respirations 20, blood pressure 138/75. Her hemoglobin and hematocrit was 11.3 and 33.6, white count 10,200. ASSESSMENT: Doing well . PLAN: The patient would like to be discharged today. We will discharge her after supper which would be after 24 hours. I discussed going home instructions. She is to followup with Dr. Brad Giles in six weeks. Electronically Signed by: WILLA GILES M.D. 01/26/17 0744 WILLA GILES M.D. Date Dict: 01/25/17 0948 WILLA GILES M.D. Date trans: 01/26/17 0458 [facility] [phone] cc: Normal [facility] HIS-ESon 01-24-2017 [facility] Name: ANNE GREGORY : 1995 Unit: [id number] Age: 21 Attending Physician: BRAD GILES M.D. Pt Location: OB 334 Date of Service: HISTORY CC: PRESENT ILLNESS: The patient is a 21-year-old II, Para I, A+ white female with estimated date of delivery of 02/02/17 by dates and ultrasound. She is Group B strep positive. The has otherwise been uncomplicated. She did have one set of contractions approximately seven hours ago and presented to the [facility] dilated 5 cm with 100 percent effacement and 0 station. PAST HISTORY: FAMILY HISTORY: SOCIAL HISTORY: SYSTEMS REVIEW: PHYSICAL EXAMINATION: heart tracings are category 1. Abdomen is soft with gravid fundus. She has trace pedal edema. Her deep tendon reflexes are 2+ with no clonus. ASSESSMENT: Term in active labor. PLAN: We will start intravenous penicillin. Anticipate vaginal delivery. Electronically Signed by: BRAD GILES M.D. 01/26/17 0700 BRAD GILES M.D. Date Dict: 01/24/171450 BRAD GILES M.D. Date trans: 01/25/171706 [facility] [phone] cc: [facility] Addendum Name: ANNE GREGORY : 1995 Unit #: [id number] Age: 21 Attending Physician: BRAD GILES M.D. Pt Location: OB [facility] Date of Service: PAST HISTORY: See OB record. FAMILY HISTORY: See OB record. SOCIAL HISTORY: See OB record SYSTEMS REVIEW: No history of blurred vision. Electronically Signed by: BRAD GILES M.D. 01/26/17 0700 __ BRAD GILES M.D. Date Dict: 01/24/17 1451 BRAD GILES M.D. Date Trans: 01/25/171706 [facility] [phone] cc: Normal [facility] PN-ESon 01-24-2017 [facility] Name: ANNE GREGORY Natividad : 1995 Unit: [id number] Age: 21 Attending Physician: BRAD GILES M.D. Pt Location: [facility] Date of Service: PROGRESS NOTE DELIVERY NOTE DATE: 01/24/17 The patient is a 21-year-old II, Para I, O+ white female with estimated date of delivery of 02/02/17 by dates and ultrasound. She presented to the [facility] dilated 5 cm. She had artificial rupture of membranes with clear fluid being obtained. heart tracing was category 1 throughout labor and delivery. The patient progressed to complete dilatation with descent of the head culminating in spontaneous vaginal delivery in the HUDSON presentation of a viable female infant. The cried spontaneously and required no resuscitation. Apgars were 9 and 10. Placenta was delivered spontaneously and intact and had a three-vessel cord. The cervix and vagina were explored following delivery and no significant lacerations were noted. Estimated blood loss was 300 mL. Mother and infant are recovering in the birthing suite without complications. Electronically Signed by: BRAD GILES M.D. 01/26/17 0700 BRAD GILES M.D. Date Dict: 01/24/17 1658 BRAD GILES M.D. Date trans: 01/25/17 1901 [facility] [phone] cc: Normal [facility] Vital Signs Date Time Vital Sign Value Performing Clinician Facility 07-05-2024 09:37-0500 Body mass index (BMI) [Ratio] 24.43 kg/m2 Rut Florrosy [facility] Work Phone: [facility] 07-05-2024 09:37-0500 Body weight 70.76 kg Rut Florrosy [facility] Work Phone: [facility] 07-05-2024 09:37-0500 Diastolic blood pressure 70 mm[Hg] Rut Lainarosy [facility] Work Phone: [facility] 07-05-2024 09:37-0500 Systolic blood pressure 110 mm[Hg] Rut Floro CNM Work Phone: [facility] 06-14-2024 11:31-0500 Body mass index (BMI) [Ratio] 23.96 kg/m2 Rut Floro CNM Work Phone: [facility] 06-14-2024 11:31-0500 Body weight 69.4 kg Rut Floro CNM Work Phone: [facility] 06-14-2024 11:31-0500 Diastolic blood pressure 70 mm[Hg] Rut Floro CNM Work Phone: [facility] 06-14-2024 11:31-0500 Systolic blood pressure 108 mm[Hg] Rut Floro CNM Work Phone: [facility] 05-09-2024 18:06-0500 Body mass index (BMI) [Ratio] 25.37 kg/m2 Rut Floro CNM Work Phone: [facility] 05-09-2024 18:06-0500 Body weight 73.48 kg Rut Floro CNM Work Phone: [facility] 05-09-2024 18:06-0500 Diastolic blood pressure 70 mm[Hg] Rut Floro CNM Work Phone: [facility] 05-09-2024 18:06-0500 Systolic blood pressure 110 mm[Hg] Rut Floro CNM Work Phone: [facility] 04-04-2024 16:35-0500 Body mass index (BMI) [Ratio] 24.28 kg/m2 Rut Floro CNM Work Phone: [facility] 04-04-2024 16:35-0500 Body weight 70.31 kg Rut Floro CNM Work Phone: [facility] 04-04-2024 16:35-0500 Diastolic blood pressure 70 mm[Hg] Rut Floro CNM Work Phone: [facility] 04-04-2024 16:35-0500 Systolic blood pressure 112 mm[Hg] Rut Floro CNM Work Phone: [facility] 03-07-2024 16:26-0500 Body mass index (BMI) [Ratio] 24.43 kg/m2 Rut Floro CNM Work Phone: [facility] 03-07-2024 16:26-0500 Body weight 70.76 kg Rut Floro CNM Work Phone: [facility] 03-07-2024 16:26-0500 Diastolic blood pressure 80 mm[Hg] Rut Floro CNM Work Phone: [facility] 03-07-2024 16:26-0500 Systolic blood pressure 120 mm[Hg] Rut Floro CNM Work Phone: [facility] 02-08-2024 17:25-0400 Body mass index (BMI) [Ratio] 23.96 kg/m2 Rut Floro CNM Work Phone: [facility] 02-08-2024 17:25-0400 Body weight 69.4 kg Rut Floro CNM Work Phone: [facility] 02-08-2024 17:25-0400 Diastolic blood pressure 74 mm[Hg] Rut Floro CNM Work Phone: [facility] 02-08-2024 17:25-0400 Systolic blood pressure 120 mm[Hg] Rut Floro CNM Work Phone: [facility] 12-23-2023 10:46-0400 Body height 170.2 cm Rut Floro CNM Work Phone: [facility] 12-23-2023 10:33-0400 Body mass index (BMI) [Ratio] 24.59 kg/m2 Rut Floro CNM Work Phone: [facility] 12-23-2023 10:33-0400 Body weight 71.22 kg Rut Floro CNM Work Phone: [facility] 08-14-2023 11:10-0400 Diastolic blood pressure 87 mm[Hg] MD Brad Tisha Work Phone: [facility] 08-14-2023 11:10-0400 Systolic blood pressure 137 mm[Hg] MD Brad Giles Work Phone: [facility] 08-14-2023 08:21-0400 Body temperature 98.2 [degF] MD Brad Giles Work Phone: [facility] 08-14-2023 08:21-0400 Heart rate 66 /min MD Brad Giles Work Phone: [facility] 08-14-2023 08:21-0400 Respiratory rate 16 /min MD Brad Giles Work Phone: [facility] 08-12-2023 15:32-0400 Body height 167.64 cm MD Brad Giles Work Phone: [facility] 08-12-2023 15:32-0400 Body weight 78.1 kg MD Brad Giles Work Phone: [facility] 07-29-2023 22:14-0400 Body height 167.64 cm MD Brad Giles Work Phone: [facility] 07-29-2023 22:14-0400 Body weight 77.56 kg MD Brad Giles Work Phone: [facility] 07-29-2023 22:13-0400 Diastolic blood pressure 78 mm[Hg] MD Brad Giles Work Phone: [facility] 07-29-2023 22:13-0400 Heart rate 77 /min MD Brad Giles Work Phone: [facility] 07-29-2023 22:13-0400 Systolic blood pressure 126 mm[Hg] MD Brad Giles Work Phone: [facility] 07-29-2023 22:08-0400 Body temperature 98.4 [degF] MD Brad Giles Work Phone: [facility] 07-29-2023 22:08-0400 Respiratory rate 16 /min MD Brad Giles Work Phone: [facility] Encounters Encounter Date Encounter Type Care Provider Facility Start: 07-26-2024 End: 07-26-2024 ambulatory RUT L FLORO Not Available Start: 07-20-2024 End: 07-20-2024 ambulatory RUT L FLORO Not Available Start: 07-05-2024 End: 07-05-2024 Office outpatient visit 15 minutes Rut L Floro CNM Work Phone: [facility] Comment on above: Encounter for superv ision of other normal , third trimester (Primary Dx) Start: 07-05-2024 End: 07-05-2024 ambulatory RUT L FLORO Not Available Start: 06-14-2024 End: 06-14-2024 Bamboo flowsheet Rut L Floro CNM Work Phone: [facility] Start: 06-14-2024 End: 06-14-2024 Bamboo flowsheet Rut L Floro CNM Work Phone: [facility] Start: 06-14-2024 End: 06-14-2024 Office outpatient visit 15 minutes Rut L Floro CNM Work Phone: [facility] Comment on above: Encounter for superv ision of other normal , third trimester (Primary Dx); Low back pain, unspecified back pain laterality, unspecified chronicity, unspecified whether sciatica present Start: 06-14-2024 End: 06-14-2024 ambulatory RUT L FLORO Not Available Start: 05-30-2024 End: 05-31-2024 Clinisync Result Encounter Rut L Floro CNM Work Phone: [facility] Unsolicited Start: 05-30-2024 End: 05-31-2024 Clinisync Result Encounter Rut L Floro CNM Work Phone: [facility] Unsolicited Start: 05-09-2024 End: 05-09-2024 Office outpatient visit 15 minutes Rut L Floro CNM Work Phone: [facility] Comment on above: Screening for diabet es mellitus; Screening for iron deficiency anemia; related condition in third trimester Start: 05-09-2024 End: 05-09-2024 ambulatory RUT L FLORO Not Available Start: 05-09-2024 End: 05-09-2024 Bamboo flowsheet Rut L Floro CNM Work Phone: [facility] Start: 05-09-2024 End: 05-09-2024 Bamboo flowsheet Rut L Floro CNM Work Phone: [facility] Start: 04-04-2024 End: 04-04-2024 Office outpatient visit 15 minutes Rut L Floro CNM Work Phone: [facility] Comment on above: Encounter for superv ision of other normal , second trimester (Primary Dx) Start: 04-04-2024 End: 04-04-2024 ambulatory RUT L FLORO Not Available Start: 04-04-2024 End: 04-04-2024 Bamboo flowsheet Rut L Floro CNM Work Phone: [facility] Start: 04-04-2024 End: 04-04-2024 Bamboo flowsheet Rut L Floro CNM Work Phone: [facility] Start: 03-21-2024 End: 03-21-2024 ambulatory RUT L FLORO Not Available Start: 03-07-2024 End: 03-07-2024 Office outpatient visit 15 minutes Rut L Floro CNM Work Phone: [facility] Comment on above: Encounter for superv ision of other normal , second trimester (Primary Dx); related condition in second trimester Start: 03-07-2024 End: 03-07-2024 ambulatory RUT L FLORO Not Available Start: 03-07-2024 End: 03-07-2024 Bamboo flowsheet Rut L Floro CNM Work Phone: [facility] Start: 03-07-2024 End: 03-07-2024 Bamboo flowsheet Rut L Floro CNM Work Phone: [facility] Start: 02-08-2024 End: 02-08-2024 Office outpatient visit 15 minutes Rut L Floro CNM Work Phone: [facility] Comment on above: Encounter for superv ision of other normal , second trimester (Primary Dx) Start: 02-08-2024 End: 02-08-2024 ambulatory RUT L FLORO Not Available Start: 02-08-2024 End: 02-08-2024 Bamboo flowsheet Rut L Floro CNM Work Phone: [facility] Start: 02-08-2024 End: 02-08-2024 Bamboo flowsheet Rut L Floro CNM Work Phone: [facility] Start: 12-23-2023 End: 12-23-2023 Bamboo flowsheet Rut L Floro CNM Work Phone: [facility] Start: 12-23-2023 End: 12-23-2023 Bamboo flowsheet Rut L Floro CNM Work Phone: [facility] Start: 12-23-2023 End: 12-23-2023 Initial care visit Rut L Floro CNM Work Phone: [facility] Comment on above: GA: 7w2d Start: 12-23-2023 End: 12-23-2023 ambulatory RUT L FLORO Not Available Start: 08-12-2023 End: 08-14-2023 Evaluation and management of inpatient Brad Giles Facility:[facility] Start: 08-12-2023 End: 08-14-2023 Evaluation and management of inpatient MD Brad Giles Work Phone: [facility]OB Department Start: 07-29-2023 End: 07-30-2023 ambulatory MD Brad Giles Work Phone: [facility] Work Phone: Start: 07-29-2023 End: 07-29-2023 Patient encounter procedure MD Brad Giles Work Phone: [facility]-OB Department Outpatient Start: 04-06-2023 End: 04-06-2023 ambulatory Bradmariluz Reaganan Facility:[facility] Start: 04-06-2023 End: 04-06-2023 ambulatory No PCP [facility] Work Phone: Start: 04-06-2023 End: 04-06-2023 Patient encounter procedure No PCP [facility]-Ultrasound Start: 01-20-2023 End: 01-20-2023 ambulatory Brad Hernandezhman Facility:[facility] Start: 01-20-2023 End: 01-20-2023 ambulatory No PCP [facility] Work Phone: Start: 01-20-2023 End: 01-20-2023 Patient encounter procedure No PCP [facility]-Ultrasound Start: 01-24-2017 End: 01-25-2017 Evaluation and management of inpatient BRAD GILES Facility:[facility] Procedures Date Procedure Procedure Detail Performing Clinician Start: 05-30-2024 US OB GROWTH Rut Cole CNM Work Phone: Start: 12-23-2023 Urine test visual color cmprsn meths Rut Cole CNSally Work Phone: Start: 08-13-2023 Blood count hematocrit MD Brad Giles Work Phone: Start: 08-12-2023 Antibody screen Brad Dial Comment on above: Performed By: #### T S #### ML , Start: 07-29-2023 Microscopic urinalysis MD Brad Giles Work Phone: Start: 07-29-2023 Urine culture MD Brad mccoy Work Phone: Start: 04-06-2023 Ultrasound scan - obstetric No PCP Start: 01-20-2023 Diagnostic ultrasoun d of gravid uterus No PCP Plan of Treatment Date Care Activity Detail Author Start: 07-20-2024 End: 07-20-2024 Patient encounter procedure 07/20/2024 2:45 PM EDT Routine [facility] [address] [facility] [place] [address] Rut Cole, CNM [address] [place] [address] [facility] Start: 07-12-2024 End: 07-12-2024 Patient encounter procedure 07/12/2024 9:00 AM EDT Routine [facility] [address] [facility] [place] [address] [facility] Start: 06-14-2024 End: 06-14-2024 Patient encounter procedure 06/14/2024 11:30 AM EST Routine [facility] [address] [facility] [place] [address] Rut Cole, CNM [address] [place] [address] Arrived [facility] Comment on above: Arrived Start: 06-07-2024 End: 06-07-2024 Patient encounter procedure 06/07/2024 9:30 AM EST Routine [facility] [address] [facility] [place] [address] Rut Cole, CNM [address] [place] [address] [facility] Start: 05-09-2024 End: 05-09-2024 Patient encounter procedure 05/09/2024 6:30 PM EST Routine [facility] [address] [facility] [place] [address] Rut Cole, CNM [address] [place] [address] Arrived [facility] Comment on above: Arrived Start: 05-09-2024 End: 05-09-2025 CBC panel - Blood by Automated count CBC Lab Routine Screening for iron deficiency anemia Expected: 05/09/2024 (Approximate), Expires: 05/09/2025 [facility] Comment on above: Expected: 05/09/2024 (Approximate), Expires: 05/09/2025 Start: 05-09-2024 End: 05-09-2025 GLUCOSE, GESTATIONAL SCREEN (50G)-135 CUTOFF GLUCOSE, GESTATIONAL SCREEN (50G)-135 CUTOFF Lab Routine Screening for diabetes mellitus Expected: 05/09/2024 (Approximate), Expires: 05/09/2025 [facility] Work Phone: Comment on above: Expected: 05/09/2024 (Approximate), Expires: 05/09/2025 Start: 05-09-2024 End: 05-09-2025 US for US OB SCAN FOR GROWTH Imaging Routine related condition in third trimester Expected: 05/09/2024, Expires: 05/09/2025 [facility] Comment on above: Expected: 05/09/2024 , Expires: 05/09/2025 Start: 05-03-2024 End: 05-03-2024 Patient encounter procedure 05/03/2024 9:30 AM EST Routine [facility] [address] [place] [address] Rut Cole, CNM [address] [place] [address] [facility] Start: 04-04-2024 End: 04-04-2024 Patient encounter procedure [facility] Comment on above: Arrived Start: 03-21-2024 End: 03-21-2024 Professional / ancillary services management 03/21/2024 5:00 PM EST Ancillary Procedure [facility] [address] [address] [facility] Start: 03-07-2024 End: 03-07-2024 Patient encounter procedure [facility] Comment on above: Arrived Start: 03-07-2024 End: 03-07-2025 US for US OB 14+ weeks anatomy scan Imaging Routine related condition in second trimester Expected: 03/07/2024, Expires: 03/07/2025 [facility] Work Phone: Comment on above: Expected: 03/07/2024 , Expires: 03/07/2025 Start: 02-08-2024 End: 02-08-2024 Patient encounter procedure 02/08/2024 5:30 PM EDT Routine [facility] [address] [place] [id number] Rut Cole, [facility] [address] [place] [address] Arrived [facility] Comment on above: Arrived Start: 01-25-2024 End: 01-25-2024 Patient encounter procedure 01/25/2024 2:00 PM EDT Routine [facility] [address] [place] [address] Rut Cole, [facility] [address] [place] [address] [facility] Start: 01-03-2024 Influenza vaccination Influenza Vacc ine (#1) [facility] Start: 12-24-2023 End: 12-23-2024 Bacteria identified in Urine by Culture Urine culture Microbiology Routine Amenorrhea examination or test, positive result Expected: 12/24/2023 (Approximate), Expires: 12/23/2024 [facility] Comment on above: Expected: 12/24/2023 (Approximate), Expires: 12/23/2024 Start: 12-24-2023 End: 12-23-2024 DRUG TOX MONITORIGN 6 W/ CONF,URINE DRUG TOX MONITORIGN 6 W/ CONF,URINE Lab Routine Amenorrhea examination or test, positive result Expected: 12/24/2023 (Approximate), Expires: 12/23/2024 [facility] Comment on above: Expected: 12/24/2023 (Approximate), Expires: 12/23/2024 Start: 12-24-2023 End: 12-23-2024 Neisseria gonorrhoeae DNA [Presence] in Cervical mucus by ROLAND with probe detection C. trachomatis / N. gonorrhoeae, DNA probe Lab Routine Amenorrhea examination or test, positive result Expected: 12/24/2023 (Approximate), Expires: 12/23/2024 [facility] Comment on above: Expected: 12/24/2023 (Approximate), Expires: 12/23/2024 Start: 12-24-2023 End: 12-23-2024 TSH W/REFLEX TO FT4 TSH W/REFLEX TO FT4 Lab Routine Amenorrhea examination or test, positive result Expected: 12/24/2023 (Approximate), Expires: 12/23/2024 [facility] Comment on above: Expected: 12/24/2023 (Approximate), Expires: 12/23/2024 Start: 12-24-2023 End: 12-23-2024 URINALYSIS MICROSCOPIC URINALYSIS MICROSCOPIC Lab Routine Amenorrhea examination or test, positive result Expected: 12/24/2023 (Approximate), Expires: 12/23/2024 [facility] Comment on above: Expected: 12/24/2023 (Approximate), Expires: 12/23/2024 Start: 12-23-2023 End: 12-23-2023 Professional / ancillary services management 12/23/2023 10:45 AM EDT Ancillary Procedure [facility] [address] [id number] [facility] Start: 12-23-2023 End: 12-23-2023 ambulatory 12/23/2023 10:30 AM EDT Initial [facility] [address] [place] [id number] Rut Cole, CAL[facility] [address] [place], [place] [id number] Arrived [facility] Comment on above: Arrived Start: 08-14-2023 Patient discharge [facility] Start: 08-13-2023 Consultation [facility] Start: 08-12-2023 Hospital admission [facility] Start: 08-12-2023 Administrative procedure [facility] Start: 07-29-2023 Patient discharge [facility] Start: 07-29-2023 Bacteria identified in Urine by Culture [facility] Start: 01-20-2023 Diagnostic ultrasoun d of gravid uterus [facility] ABO/Rh ABO/Rh Lab Routi ne Amenorrhea examination or test, positive result Ordered: 12/24/2023 [facility] Comment on above: Ordered: 12/24/2023 Antibody screen Antibody screen Lab Routine Amenorrhea examination or test, positive result Ordered: 12/24/2023 [facility] Comment on above: Ordered: 12/24/2023 CBC panel - Blood by Automated count CBC Lab Routine Amenorrhea examination or test, positive result Ordered: 12/24/2023 [facility] Comment on above: Ordered: 12/24/2023 Hemoglobin A1c/Hemoglobin.total in Blood Hemoglobin A1c Lab Routine Amenorrhea examination or test, positive result Ordered: 12/24/2023 [facility] Comment on above: Ordered: 12/24/2023 Hepatitis B virus salazar rface Ag [Presence] in Serum or Plasma by Immunoassay Hepatitis B surface antigen Lab Routine Amenorrhea examination or test, positive result Ordered: 12/24/2023 [facility] Work Phone: Comment on above: Ordered: 12/24/2023 Hepatitis C virus Ab [Presence] in Serum or Plasma by Immunoassay Hepatitis C antibody Lab Routine Amenorrhea examination or test, positive result Ordered: 12/24/2023 [facility] Comment on above: Ordered: 12/24/2023 HIV-1/HIV-2 antigen/antibody combination immunoassay HIV-1 and HIV-2 antibodies Lab Routine Amenorrhea examination or test, positive result Ordered: 12/24/2023 [facility] Comment on above: Ordered: 12/24/2023 Patient Education [facility] Work Phone: Patient referral [facility] Work Phone: Reagin Ab [Presence] in Serum by RPR RPR Lab Routine Amenorrhea examination or test, positive result Ordered: 12/24/2023 [facility] Comment on above: Ordered: 12/24/2023 Rubella antibody, IgG Rubella an tibody, IgG Lab Routine Amenorrhea examination or test, positive result Ordered: 12/24/2023 [facility] Comment on above: Ordered: 12/24/2023 Urine substance measurement [facility] Immunizations Immunization Date Immunization Notes Care Provider Lauren blanco 06-25-2023 tetanus toxoid, redu leigh diphtheria toxoid, and acellular pertussis vaccine, adsorbed MD Brad Giles Work Phone: [facility] Payers Date Payer Category Payer Medicaid [employer] [id number] 2023-Present [address] [place] [address] [id number] 2023 Medicaid (Managed Care) [facility] MEDICAID [id number] 2023 Self-pay 2023 Unknown [id number] 1995 Unknown [id number] 2..840.1.463741.3.579.2. 1186 1995 Unknown [id number] 2..840.1.159090.3.579.2. 1186 1995 Unknown [id number] 2..840.1.149404.3.579.2. 1186 1995 Unknown [id number] 2.16.840.1.809881.3.579.2. 1186 1995 Unknown [id number] 2..840.1.338794.3.579.2. 9 1995 Unknown [id number] 2.16.840.1.882179.3.579.2. 9 1995 Unknown [id number] 2.16.840.1.011129.3.579.2. 9 1995 Unknown [id number] 2.16.840.1.116245.3.579.2. 1258 1995 Unknown [id number] 2.16.840.1.033518.3.579.2. 1258 1995 Unknown [id number] 2.16.840.1.891737.3.579.2. 1258 1995 Unknown [id number] 2.16.840.1.396762.3.579.2. 1258 1995 Unknown [id number] 2.16.840.1.768410.3.579.2. 1258 1995 Unknown [id number] 2.16.840.1.372093.3.579.2. 1258 1995 Unknown [id number] 2.16.840.1.208740.3.579.2. 1258 1995 Unknown [id number] 2.16.840.1.668947.3.579.2. 1258 1995 Unknown [id number] 2.16.840.1.413507.3.579.2. 9 Social History Date Type Detail Facility Tobacco smoking stat us MDIS Unknown if ever smoked [facility] Work Phone: Start: 1995 Sex Assigned At Female F [facility] Start: 08-12-2023 End: 12-23-2023 Tobacco smoking status NHIS Never smoked tobacco (finding) [facility] Start: 08-12-2023 [place] [facility] Start: 08-12-2023 0 [facility] Start: 08-12-2023 No Prior Services [facility] Start: 08-12-2023 Marijuana (Any Form) Fu [facility] Start: 08-12-2023 Previously Used [facility] Start: 08-12-2023 With Spouse/Si gnificant Other [facility] Start: 12-23-2023 Tobacco use and exposure Smokeless tobacco non-user [facility] Start: 12-23-2023 Alcoholic beverage intake Ex-drinker (finding) [facility] Start: 12-23-2023 History of Social function [facility] Start: 12-23-2023 Tobacco use panel [facility] Start: 11-16-2023 [facility] Start: 1995 Sex assigned at Not on file [facility] Tobacco smoking stat NHIS Tobacco smoking consumption unknown [facility] Goals Date Patient Goal Desired Activity /State Functional Status Date Assessment Result Facility 08-14-2023 Functional status Independent [facility] Work Phone: 08-12-2023 Functional status Independent [facility] Work Phone: Mental Status Date Assessment Result Facility 08-12-2023 Cognitive function No Impairment [facility] Work Phone: Clinical Notes 08-12-2023 to 07-05-2024 Rut Cole, G[place] - 07/05/2024 10:15 AM Jaida Cole, [place] - 06/14/2024 11:30 AM Jaida Cole, [place] - 04/04/2024 4:30 PM ESTRut Cole, [facility] - 03/07/2024 4:30 PM EST Note Date & Type Note Facility 07-05-2024 History of Presen t illness Narrative Subjective No chief complaint on file. Anne Gregory is a 29 y.o. at 35w1d with a working estimated date of delivery of 08/08/2024, by Last Menstrual Period who presents for a routine visit. She denies vaginal bleeding, leakage of fluid, decreased movements, or contractions. OB History Para Term AB Living 4 3 3 2 SAB IAB Ectopic Multiple Live Births 2 # Outcome Date GA Lbr Gabriele/2nd Weight Sex Type Anes PTL Lv 4 Current 3 Term 08/12/23 41w0d 6 lb 7 oz M Vag-Spont 2 Term 01/24/17 37w0d 7 lb 6 oz F Vag-Spont OZZY 1 Term 11/14/15 38w0d 6 lb 7 oz M Vag-Spont EPI Y OZZY Her is complicated by: Objective Physical Exam Expected Total Weight Gain: 25 lb-35 lb Pregravid BMI: 24.58 BP: 110/70 Urine protein Urine glucose Assessment/Plan Diagnoses and all orders for this visit: Encounter for supervision of other normal , third trimester Continue vitamin. Labs reviewed. GBS next week for GBS Expected mode of delivery Follow up in 1 week for GBS a then 2 weeks for routine visit. documented in this encounter [facility] 06-14-2024 History of Presen t illness Narrative Subjective No chief complaint on file. Anne Gregory is a 29 y.o. at 32w1d with a working estimated date of delivery of 08/08/2024, by Last Menstrual Period who presents for a routine visit. She denies vaginal bleeding, leakage of fluid, decreased movements, or contractions. OB History Para Term AB Living 4 3 3 2 SAB IAB Ectopic Multiple Live Births 2 # Outcome Date GA Lbr Gabriele/2nd Weight Sex Type Anes PTL Lv 4 Current 3 Term 08/12/23 41w0d 6 lb 7 oz M Vag-Spont 2 Term 01/24/17 37w0d 7 lb 6 oz F Vag-Spont OZZY 1 Term 11/14/15 38w0d 6 lb 7 oz M Vag-Spont EPI Y OZZY Her is complicated by: aching Objective Physical Exam weight: 153 lb Expected Total Weight Gain: 25 lb-35 lb Pregravid BMI: 24.58 BP: 108/70 Urine protein-negative Urine glucose-negative Assessment/Plan Diagnoses and all orders for this visit: Encounter for supervision of other normal , third trimester Patient states that she aches and hurts. She was cleaning baseboards yesterday and states that her lower back hurts today. She is using warm heating pad, and I also suggested she can try tylenol for discomfort. PVU Continue vitamin. Labs reviewed. GBS at 36 weeks Expected mode of delivery Follow up in 2 weeks for a routine visit. documented in this encounter [facility] 04-04-2024 History of Presen t illness Narrative Subjective No chief complaint on file. Anne Gregory is a 29 y.o. at 22w0d with a working estimated date of delivery of 08/08/2024, by Last Menstrual Period who presents for a routine visit. She denies vaginal bleeding, leakage of fluid, decreased movements, or contractions. OB History Para Term AB Living 4 3 3 2 SAB IAB Ectopic Multiple Live Births 2 # Outcome Date GA Lbr Gabriele/2nd Weight Sex Type Anes PTL Lv 4 Current 3 Term 08/12/23 41w0d 6 lb 7 oz M Vag-Spont 2 Term 01/24/17 37w0d 7 lb 6 oz F Vag-Spont OZZY 1 Term 11/14/15 38w0d 6 lb 7 oz M Vag-Spont EPI Y OZZY Her is complicated by: +GBS urine, marijuana use The following portions of the chart were reviewed this encounter and updated as appropriate: Objective Physical Exam weight: 155 lb Expected Total Weight Gain: 25 lb-35 lb Pregravid BMI: 24.58 BP: 112/70 Urine protein-negative Urine glucose-negative Labs: reviewed Imaging Assessment/Plan Diagnoses and all orders for this visit: Encounter for supervision of other normal , second trimester Continue vitamin. Labs reviewed. Rhogam not needed GTT at 28 weeks Follow up in 2 weeks for a routine visit. documented in this encounter [facility] 03-07-2024 History of Presen t illness Narrative Subjective No chief complaint on file. Anne Gregory is a 29 y.o. at 18w0d with a working estimated date of delivery of 08/08/2024, by Last Menstrual Period who presents for a routine visit. She denies vaginal bleeding, leakage of fluid, decreased movements, or contractions. OB History Para Term AB Living 4 3 3 2 SAB IAB Ectopic Multiple Live Births 2 # Outcome Date GA Lbr Gabriele/2nd Weight Sex Type Anes PTL Lv 4 Current 3 Term 08/12/23 41w0d 6 lb 7 oz M Vag-Spont 2 Term 01/24/17 37w0d 7 lb 6 oz F Vag-Spont OZZY 1 Term 11/14/15 38w0d 6 lb 7 oz M Vag-Spont EPI Y OZZY Her is complicated by: The following portions of the chart were reviewed this encounter and updated as appropriate: Objective Physical Exam weight: 156 lb Expected Total Weight Gain: 25 lb-35 lb Pregravid BMI: 24.58 BP: 120/80 Urine protein-negative Urine glucose-negative Labs: reviewed Imaging Assessment/Plan Diagnoses and all orders for this visit: Encounter for supervision of other normal , second trimester related condition in second trimester - US OB 14+ weeks anatomy scan; Future Continue vitamin. Labs reviewed. Rhogam A+ positive GTT at 28 weeks Follow up in 2 weeks for anatomy scan and then 4 weeks for routine visit. documented in this encounter [facility] 02-08-2024 History of Presen t illness Narrative Subjective No chief complaint on file. Anne Gregory is a 28 y.o. at 14w0d with a working estimated date of delivery of 08/08/2024, by Last Menstrual Period who presents for a routine visit. She denies vaginal bleeding, leakage of fluid, decreased movements, or contractions. OB History Para Term AB Living 4 3 3 2 SAB IAB Ectopic Multiple Live Births 2 # Outcome Date GA Lbr Gabriele/2nd Weight Sex Type Anes PTL Lv 4 Current 3 Term 08/12/23 41w0d 6 lb 7 oz M Vag-Spont 2 Term 01/24/17 37w0d 7 lb 6 oz F Vag-Spont OZZY 1 Term 11/14/15 38w0d 6 lb 7 oz M Vag-Spont EPI Y OZZY Her is complicated by: The following portions of the chart were reviewed this encounter and updated as appropriate: Objective Physical Exam weight: 153 lb Expected Total Weight Gain: 25 lb-35 lb Pregravid BMI: 24.58 BP: 120/74 Urine protein-negative Urine glucose-negative Labs: reviewed Imaging Assessment/Plan Diagnoses and all orders for this visit: Encounter for supervision of other normal , second trimester Continue vitamin. Labs reviewed. Rhogam GTT at 28 s documented in this encounter [facility] 12-23-2023 History of Presen t illness Narrative Subjective Anne Gregory is a 28 y.o. at 11w4d with a working estimated date of delivery of 07/09/2024, by Last Menstrual Period who presents for an initial visit. This is unplanned. 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 She is extremely nauseated and states she throws up every day and she is having a hard time. This was unplanned and they were not expecting to have another child. She states she is sick like this with every and she vomits at least once a day for the entire . I did want her to come in today for meet and greet so I could assess her vomiting and give appropriate treatment. Urine protein-negative Urine glucose-negative Labs Assessment/Plan Diagnoses and all orders for this visit: examination or test, positive result - Hepatitis B surface antigen - Rubella antibody, IgG - CBC - Antibody screen - RPR - Hemoglobin A1c - TSH W/REFLEX TO FT4; Future - HIV-1 and HIV-2 antibodies - ABO/Rh - DRUG TOX MONITORIGN 6 W/ CONF,URINE; Future - Hepatitis C antibody - Urine culture; Future - URINALYSIS MICROSCOPIC; Future - C. trachomatis / N. gonorrhoeae, DNA probe; Future Amenorrhea - POCT , urine - Hepatitis B surface antigen - Rubella antibody, IgG - CBC - Antibody screen - RPR - Hemoglobin A1c - TSH W/REFLEX TO FT4; Future - HIV-1 and HIV-2 antibodies - ABO/Rh - DRUG TOX MONITORIGN 6 W/ CONF,URINE; Future - Hepatitis C antibody - Urine culture; Future - URINALYSIS MICROSCOPIC; Future - C. trachomatis / N. gonorrhoeae, DNA probe; Future Blue education folder given. Patient educated on safe medication list. Genetic testing information given. Discussed the do's and don'ts in the blue folder. We discussed labs and what we draw and what we are testing for. Patient is also informed that we do a urine drug test. Patient also given office phone number and The [facility] number to call in case of an emergency or after hours needs. PVU and all questions answered. We did discuss place of delivery. Patient should plan to go to [facility] for all services unless an emergency and they need to go to the closest ER. We can make other arrangements possibly if patient would like to deliver at another facility but I did explain I am now at [facility] 100% of the time and would like to do all deliveries there. documented in this encounter [facility] 08-14-2023 Discharge summary Note Date/Time August 14, 2023 8:[address] [address] Discharge Summary Signed Patient Name: Anne Gregory Medical Rec ord #: [id number] Date of : 1995 Account #: [id number] Age/Sex: 28 / F Location: OB Department Attending physician: Brad Giles MD DS: Diagnosis Discharge Diagnosis (1) Term : Status: Acute (2) Active labor: Status: Acute Procedures Performed Other Procedures Performed: Spontaneous vaginal delivery Exam: OB Physical Exam Vital signs: Vital Signs - 24 hr 08/13/23 14:15 08/13/23 20:00 08/14/23 03:15 Temperature 98.6 F 98.9 F 98.6 F Pulse Rate [Right] 61 74 64 Respiratory Rate 16 18 16 Blood Pressure [Right Arm] 125/76 129/85 114/69 Oxygen Delivery Method Room Air Room Air Room Air Routine Respiratory Exam Comments: Clear to auscultation Routine Cardiovascular Exam Comments: Regular rate and rhythm without murmur Routine Abdominal Exam Comments: Uterus 3 cm below the umbilicus. Firm and nontender. Routine Extremities Exam Comments: Homans' sign negative. No pedal edema. Discharge Plan Admission Infomation Date of Admission: 08/12/23 14:55 Primary Care Provider: Brad Giles Attending Provider: Brad Giles Discharge (Provider) Patient Disposition: Home, Self-Care Discharge Orders: Discharge/Release Order (Routine); Ordered 08/14/23 Ordered By: Brad Giles Condition: Good Assessment (Hospital Narrative): Patient is a 28-year-old 3 para 2 a positive white female who was admitted with active labor. She had artificial rupture membranes performed at 6cm dilatation and progressed to spontaneous vaginal delivery without complications. course was uncomplicated. hemoglobin was 11.2. Patient was discharged in good condition. Discharge Medications: Continued sertraline 100 mg tablet 100 mg PO DAILY prenat.vits,kirsten,bon-lmcj-julcb Tablet 1 tab PO DAILY Activity: may climb stairs and september shower Diet: regular diet Follow-Up Orders Follow-Up Appointments: Brad Giles MD [Primary Care Provider] - 6 Weeks Dictated By: Brad Giles MD 08/14/23 0800 Signed By: <Electronically signed by Brad Giles MD> 08/14/23 0801 Cosigned By (if applicable): [id number] cc: Brad Giles MD [facility] Work Phone: [phone] Evaluation note* Author Brad Giles [facility] Authored August 14, 2023 7:5 9am Patient is a 28-year-old gra beatriz 3 para 2 a positive white female who was admitted with active labor. She had artificial rupture membranes performed at 6 cm dilatation and progressed to spontaneous vaginal delivery without complications. course was uncomplicated. hemoglobin was 11.2. Patient was discharged in good condition. [facility] Work Phone: [phone] Progress note Author Brad Giles [facility] August 13, 2023 8:52am Note Date/Time August 13, 2023 8:[address] [place] [id number] Progress Note Signed Patient Name: Anne Gregory Medical Rec ord #: [id number] Date of : 1995 Account #: [id number] Age/Sex: 28 / F Location: OB Department Attending physician: Brad Giles MD Subjective Subjective Date of admission: 08/12/23 Date of exam: 08/13/23 Subjective Narrative: Patient reports mild cramping. She has had no significant lochia. Hemoglobin this morning is 11.2 Exam: OB Physical Exam Vital signs: Vital Signs - 24 hr 08/12/23 15:37 08/12/23 15:00 08/12/23 16:32 Temperature 98.6 F Pulse Rate 63 61 Pulse Rate [Right] Respiratory Rate Blood Pressure 122/80 136/83 Blood Pressure [Right Arm] Oxygen Delivery Method 08/12/23 19:09 08/12/23 19:44 08/12/23 19:46 Temperature Pulse Rate 55 L 70 59 L Pulse Rate [Right] Respiratory Rate Blood Pressure 136/72 148/89 H 139/67 Blood Pressure [Right Arm] Oxygen Delivery Method 08/12/23 20:01 08/12/23 20:16 08/12/23 20:32 Temperature Pulse Rate 51 L 75 54 L Pulse Rate [Right] Respiratory Rate Blood Pressure 142/87 H 141/76 H 139/81 Blood Pressure [Right Arm] Oxygen Delivery Method 08/12/23 20:47 08/12/23 20:49 08/12/23 21:17 Temperature Pulse Rate 53 L 53 L 52 L Pulse Rate [Right] Respiratory Rate Blood Pressure 172/92 H 132/67 121/73 Blood Pressure [Right Arm] Oxygen Delivery Method 08/12/23 21:31 08/12/23 21:47 08/13/23 02:59 Temperature Pulse Rate 54 L 63 55 L Pulse Rate [Right] Respiratory Rate Blood Pressure 119/71 132/87 116/73 Blood Pressure [Right Arm] Oxygen Delivery Method 08/12/23 15:32 08/13/23 03:08 08/13/23 07:54 Temperature 98.6 F 98.6 F 98.7 F Pulse Rate Pulse Rate [Right] 61 63 53 L Respiratory Rate 16 18 16 Blood Pressure Blood Pressure [Right Arm] 136/83 116/73 140/93 Oxygen Delivery Method Room Air Room Air Room Air Routine Abdominal Exam Comments: Uterus 3 cm below the umbilicus and is firm and nontender Routine Extremities Exam Comments: Homans' sign negative. No pedal edema. Objective Data Labs Labs: Laboratory Results - last 24 hr 08/12/23 08/12/23 08/12/23 14:40 15:11 16:19 WBC 7.7 RBC 4.09 Hgb 11.8 Hct 34.5 L MCV 84.4 MCH 28.9 MCHC 34.2 RDW 12.4 Plt Count 221 MPV 10.4 Neut % (Auto) 60 Lymph % (Auto) 27 [place] % (Auto) 11 Eos % (Auto) 2 Baso % (Auto) 0 Lymph # (Auto) 2.0 [place] # (Auto) 0.9 H Eos # (Auto) 0.1 Baso # (Auto) 0.0 L Absolute Neutrophils 4.6 PT 9.5 INR 0.93 APTT 25.1 Membrane Rupture Negative Opiates Screen Negative Barbiturate Screen Negative Phencyclidine Screen Negative Amphetamines Screen Negative Benzodiazepines Screen Negative Cocaine Screen Negative Marijuana (THC) Screen Positive H Blood Type A Positive Antibody Screen Negative 08/13/23 05:18 WBC 10.9 H RBC 3.84 L Hgb 11.2 L Hct 33.0 L MCV 85.9 MCH 29.1 MCHC 33.9 RDW 12.4 Plt Count 203 MPV 10.7 H Neut % (Auto) Lymph % (Auto) [place] % (Auto) Eos % (Auto) Baso % (Auto) Lymph # (Auto) [place] # (Auto) Eos # (Auto) Baso # (Auto) Absolute Neutrophils PT INR APTT Membrane Rupture Opiates Screen Barbiturate Screen Phencyclidine Screen Amphetamines Screen Benzodiazepines Screen Cocaine Screen Marijuana (THC) Screen Blood Type Antibody Screen Assessment and Plan Assessment and plan (1) Term : Status: Acute (2) Active labor: Status: Acute Plan Continue routine care Dictated By: Brad Giles MD 08/13/23 0850 Signed By: <Electronically signed by Brad Giles MD> 08/13/23 0852 Cosigned By (if applicable): [id number] cc: Brad Giles MD [facility] Work Phone: 1(904) 501-392904-10-2024 History and physical note Author Brad Giles [facility] August 12, 2023 6:54pm Note Date/Time August 12, 2023 6:5 4pm [facility] [address] [place] [id number] History & Physical Report Signed Patient Name: Anne Gregory Medical Rec ord #: [id number] Date of : 1995 Account #: [id number] Age/Sex: 28 / F Location: OB Department Attending physician: Brad Giles MD OB H&P: HPI History of Present Illness Date of admission: 08/12/23 Date of exam: 08/12/23 Chief complaint: : 3 Para: 2 Date of last menstrual period: 10/13/22 Estimated date of delivery: 07/20/23 Gestational age based on last menstrual period: 43 Narrative: Location Quality Severity/Quantity Duration/Onset Timing/Frequency Context Factors that make it better/worse Associated signs & symptoms Anne Gregory is a 28 year old F 3, 2 A+ white female at 40 weeks gestation who is has been complicated by group B strep culture positivity. She was seen in the office today and membranes were stripped at that time she was 3 to 4 cm dilated 100% effaced. She then came to the OB department to fill out paperwork and felt increased pelvic pressure she was found to be 5 cm dilated. She is having irregular contractions. She is now admitted to labor care. Home Meds and Allergies Home Medications Medication Instructions Recorded Confirmed Type prenat.vits,kirsten,kxu-mgjy-pleqd 1 tab PO DAILY 08/12/23 08/12/23 History sertraline 100 mg tablet 100 mg PO DAILY 08/12/23 08/12/23 History Allergies Allergy/AdvReac Type Severity Reaction Status Date / Time No Known Drug Allergies Allergy Verified 08/12/23 15:51 Review of Systems Narrative: Eyes: No blurred vision Ears, nose, mouth and throat: Patient denies sore throat or difficulty swallowing. Cardiovascular: No chest pain, heart palpitations or pedal edema Respiratory: No shortness of breath or cough Gastrointestinal: No nausea, vomiting or diarrhea Genitourinary: No dysuria or urinary frequency Musculoskeletal: No joint swelling or pain Skin: No rashes Neurologic: Patient denies focal sensory or motor deficit. No headache Psychiatric: Fluid thought processes Hematologic/lymphatic: No swollen glands History PFSH Medical History Anxiety Bowel obstruction Family History Mother Anxiety Bipolar 1 disorder Father Alcohol abuse Father Diabetes mellitus Anxiety Sister Anxiety Son Low platelet count Social History History Provided by: Patient Preferred Language: Faroese Language Assistance Offered: Accepted Language Assistance Provided By: Family/Friend Usual Living Arrangement: With Spouse/Significant Other Anyone at Home Need Help While Hospitalized: No Smoking Status: Never Smoker Other Form of Tobacco Used: Previously Used Years Other Form of Tobacco Used: 2 Second Hand Tobacco Smoke Exposure: No HC Smoking Cessation Instructions Provided to Patient: No How Often do you Have a Drink Containing Alcohol: Never How Many Standard Drinks Containing Alcohol do you Have on a Typical Day: None How Often do you Have Six or More Drinks on One Occasion: Never AUDIT-C Alcohol Total Score: 0 Caffeine Use: Yes Non-Prescribed Substance Use: Marijuana (Any Form) Non-Prescribed Substance Use Details: Patient states edible marijuana use a week prior to admission Has Patient Ever Been Admitted to Treatment Facility for Alcohol/Drug Abuse: No Recent Life Stress: No Recent Loss: No Auditory/Visual Hallucinations: No Homicical Thoughts/Plans: No Suicidal Thoughts/Plans: No Hx Psychiatric Treatment: No Primary Care Provider Notified: Provider Aware History of Physical Abuse: No History of Emotional Abuse: No History of Sexual Abuse: No Suspect/Identified Abuse: No Provider Notified of Abuse or Suspected Abuse: No Travel Outside of the Area Within the Last 8 Weeks: No Exposure or Possible Exposure to Illness During Travel: No Employment Status: Self-Employed Current Occupational Exposures/Hazards: No [place] or Spouse of a Living : No Highest Level of School Completed/Degree Received: High School Cultural/Personal/Hoahaoism Beliefs that Affect Patient Care: No Cultural or Hoahaoism Modesty Issues Regarding Care by Staff of the Opposite Sex: No Hoahaoism Items Worn: No Other Factors Affecting Patient Care Experience: No Services Used Prior to Admission: No Prior Services Patient Discharge Plan Description: Return Home Services Needed at Discharge: No Services Needed Arrangement for Transportation Home Needed: No Discharge Planning/Case Management Referral Needed: No Concerns Regarding Hospital Charges: No Exam: OB Physical Exam: Vital signs: Vital Signs - 24 hr 08/12/23 15:37 08/12/23 15:00 08/12/23 16:32 Temperature 98.6 F Pulse Rate 63 61 Pulse Rate [Right] Respiratory Rate Blood Pressure 122/80 136/83 Blood Pressure [Ri ght Arm] Oxygen Delivery Me thod 08/12/23 15:32 Temperature 98.6 F Pulse Rate Pulse Rate [Right] 61 Respiratory Rate 16 Blood Pressure Blood Pressure [Ri ght Arm] 136/83 Oxygen Delivery Me thod Room Air Routine HEENT Exam: Comments: CAITIE UNDERWOOD Routine Neck Exam: Comments: Supple without masses Routine Respiratory Exam: Comments: Clear to auscultation Routine Cardiovascular Exam: Comments: Regular rate and rhythm without murmur Routine Abdominal Exam: Comments: Gravid with fundal height of 39 cm Routine Exam: Comments: Cervix 6 cm dilated with in vertex presentation. Artificial rupture of membranes was performed with clear fluid being obtained. Routine Extremities Exam: Comments: No pedal edema Results Labs Labs: Laboratory Results - last 24 hr 08/12/23 08/12/23 08/12/23 14:40 15:11 16:19 WBC 7.7 RBC 4.09 Hgb 11.8 Hct 34.5 L MCV 84.4 MCH 28.9 MCHC 34.2 RDW 12.4 Plt Count 221 MPV 10.4 Neut % (Auto) 60 Lymph % (Auto) 27 [place] % (Auto) 11 Eos % (Auto) 2 Baso % (Auto) 0 Lymph # (Auto) 2.0 [place] # (Auto) 0.9 H Eos # (Auto) 0.1 Baso # (Auto) 0.0 L Absolute Neutrophils 4.6 PT 9.5 INR 0.93 APTT 25.1 Membrane Rupture Negative Opiates Screen Negative Barbiturate Screen Negative Phencyclidine Screen Negative Amphetamines Screen Negative Benzodiazepines Screen Negative Cocaine Screen Negative Marijuana (THC) Screen Positive H Blood Type A Positive Antibody Screen Negative OB - A/P Labor/Induction Assessment and Plan (1) Term : Status: Acute (2) Active labor: Status: Acute Plan Begin ampicillin group B strep prophylaxis. Anticipate vaginal delivery. Dictated By: Brad Giles MD 08/12/23 1848 Signed By: <Electronically signed by Brad Giles MD> 08/12/23 1853 Cosigned By (if applicable): [id number] cc: Brad Giles MD [facility] Work Phone: [phone] [facility]Ohio[facility] Evaluation noteNo assessment information availableOhiohealth [facility] Hospital Work Phone: Evaluation note* Diagnosis Encounter for supervision of other normal , second trimester- Primary [facility] Diagnosis Encounter for supervision of other normal , second trimester- Primary related condition in second trimester [facility]* Diagnosis examination or test, positive result- Primary Amenorrhea Absence of menstruation [facility]* Diagnosis Screening for diabetes mellitus Screening for iron deficiency anemia related condition in third trimester [facility]* Diagnosis Encounter for supervision of other normal , third trimester- Primary Low back pain, unspecified back pain laterality, unspecified chronicity, unspecified whether sciatica present [facility] Diagnosis Encounter for supervision of other normal , third trimester- Primary [facility]* Rut Cole, CALOS - 05/09/2024 6:30 PM EST Subjective No chief complaint on file. Anne Gregory is a 29 y.o. at 27w0d with a working estimated date of delivery of 08/08/2024, by Last Menstrual Period who presents for a routine visit. She denies vaginal bleeding, leakage of fluid, decreased movements, or contractions. OB History Para Term AB Living 4 3 3 2 SAB IAB Ectopic Multiple Live Births 2 # Outcome Date GA Lbr Gabriele/2nd Weight Sex Type Anes PTL Lv 4 Current 3 Term 08/12/23 41w0d 6 lb 7 oz M Vag-Spont 2 Term 01/24/17 37w0d 7 lb 6 oz F Vag-Spont OZZY 1 Term 11/14/15 38w0d 6 lb 7 oz M Vag-Spont EPI Y OZZY Her is complicated by: The following portions of the chart were reviewed this encounter and updated as appropriate: Objective Physical Exam Expected Total Weight Gain: 25 lb-35 lb Pregravid BMI: 24.58 Urine protein Urine glucose Labs: reviewed Imaging Assessment/Plan Patient c/o muscle soreness. Legs, lower back, buttocks. 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 I did suggest warm bathes with epsom salts, heating pad to lower back, massage. Etc. PVU Needs PCP provider for her and her children. Will talk jeet Luis, as she would like [facility] care for her . Continue vitamin. Labs reviewed. Rhogam GTT next week Follow up in 2 weeks for a routine visit. [facility] Summary Purpose Family History No Family History Records Found Relationship Condition Age at Onset Recorded Date/T selin mother Anxiety Unknown Bipolar I disorder Unknown father Alcohol abuse Unknown father Diabetes mellitus Unknown Anxiety Unknown sister Anxiety Unknown son Low platelet count Unknown Advance Directives No Advanced Directives Records Found Advance Directive Response Recorded Date/ Time Advance Directives No August 11 3:11pm Chief Complaint and Reason for Visit Chief Complaint z34.91 care 1st trimester Chief Complaint z34.91 care 1st trimester Z34.92 care 2nd trimester Chief Complaint contractions Chief Complaint contractions Reason for Visit Active labor Term Additional Source Comments INFORMATION SOURCE (unrecogn ized section and content) DATE CREATED AUTHOR 10/27/2017 [facility] DATE CREATED AUTHOR AUTHOR'S ORGANIZ ATION 08/16/2023 [facility] DATE CREATED AUTHOR AUTHOR'S ORGANIZ ATION 07/31/2024 [facility] EPIC Care Teams (unrecognized sec tion and content) Team Status: Active Member Role Status Dates No PCP Primary Care Provider Active Team Status: Inactive Member Role Status Dates Brad Giles MD Attending Provider Active No PCP Primary Care Provider Active Team Status: Active Member Role Status Dates Brad Giles MD Primary Care Provider Active Team Status: Inactive Member Role Status Dates Brad Giles MD Primary Care Provider, Attending Pr robi Active Team Status: Inactive Member Role Status Dates Brad Giles MD Primary Care Provide r, Admit Provider, Attending Provider Active [employer] Professor Relationship Specialty Start Date End Date Ortega Eleanor Cristi [facility] [address] [place] [address] PCP - General 12/23/23 Goals (unrecognized section and content) Goals may be documented in a n alternate sectionGoals may be documented in an alternate sectionGoals may be documented in an alternate section Reason for Visit (unrecogniz ed section and content) Reason Comments Initial Visit FOR RECORDS PERTAINING TO PATIENTS WHO ARE OR HAVE BEEN ENROLLED IN A CHEMICAL DEPENDENCY/SUBSTANCEABUSE PROGRAM, SOME INFORMATION MAY BE OMITTED. This clinical summary was aggregated from multiple sources. Caution should be exercised in using it in the provision of clinical care. This summary normalizes information from multiple sources, and as a consequence, information in this document may materially change the coding, format and clinical context of patient data. In addition, data may be omitted in some cases. CLINICAL DECISIONS SHOULD BE BASED ON THE PRIMARY CLINICAL RECORDS. [employer] [facility]. provides no warranty or guarantee of the accuracy or completeness of information in this document.
[2024-08-02] MEDS: LACTATED RINGER'S SOLUTION 1,000 ML 125 ML IV (10:57)
[2024-08-02] MEDS: CLINDAMYCIN PHOSPHATE/D5W 900 MG/50 ML PREMIX 100 MG IV (10:58)
[2024-08-02 11:09] LABS: Hematocrit 34.4 % (36.0-48.0); Hemoglobin 11.6 g/dL (12.0-16.0); Mean Corpuscular HGB Conc 33.7 g/dL (29.9-35.2); Mean Corpuscular Hemoglobin 28.6 pg (26.7-34.0); Mean Corpuscular Volume 84.9 fL (81.0-99.0); Mean Platelet Volume 10.3 fL (9.5-13.5); Platelet Count 371 10^3/uL (150-450); Red Blood Count 4.05 10^6/uL (4.20-5.40); Red Cell Distribution Width 12.6 % (11.0-15.0); White Blood Count 7.8 10^3/uL (4.0-11.0)
[2024-08-02 11:23] LABS: Amphetamine Screen Urine NEGATIVE (NEGATIVE); Barbiturates Screen Urine NEGATIVE (NEGATIVE); Benzodiazepines Screen Urine NEGATIVE (NEGATIVE); Buprenorphine Screen Urine NEGATIVE (NEGATIVE); Cannabinoid Screen Urine POSITIVE (NEGATIVE); Cocaine Screen Urine NEGATIVE (NEGATIVE); Methadone Screen Urine NEGATIVE (NEGATIVE); Methamphetamines Screen Urine NEGATIVE (NEGATIVE); Opiate Screen Urine NEGATIVE (NEGATIVE); Oxycodone Screen Urine NEGATIVE (NEGATIVE); Phencyclidine Screen Urine NEGATIVE (NEGATIVE); Tricyclic Antidepressant Urine NEGATIVE (NEGATIVE)
--- NOTE | 2024-08-02 13:31 | P.OBHP_ITS ---
OB - H&P: HPI History of Present Illness Chief complaint: CONTRACTIONS : 4 Para: 3 Gestational age based on last menstrual period: 39.1 History of Present Dating criteria: LMP confirmed by 1st trimester US care: good care Ultrasounds: normal 1st trimester US and normal mid trimester US Medical complications OB: none Labs Blood type: A (+) positive Rubella: immune RPR/VDLR: nonreactive GBS status: positive HBsAG: negative Review of Systems ROS Status of ROS: 10 or more systems reviewed and unremarkable except as noted in history and below Ears, nose, mouth, and throat: Reports: other (slightly congested ) PFSH PFSH Social History Highest level of school completed/degree received: high school graduate Little interest or pleasure in doing things: several days Feeling down, depressed, or hopeless: several days Meds Home Medications and Allergies Allergies Allergy/AdvReac Type Severity Reaction Status Date / Time amoxicillin Allergy Intermediate Unknown Verified 08/02/24 10:33 Exam Constitutional Vital Signs, click to edit/add: Last Vital Signs Temp 96.8 F L 08/02/24 11:11 Pulse 67 08/02/24 13:02 BP 128/86 08/02/24 13:02 Documenting provider has reviewed patient's vital signs: yes Common normals: no apparent distress, average body habitus and oriented x3 General appearance: cooperative and comfortable Orientation/consciousness: Yes awake, Yes oriented to person, Yes oriented to place and Yes oriented to time HENMT Common normals: normocephalic Eye Common normals: EOMs intact bilaterally Neck & C-Spine Common normals: full ROM Lymph Lymphatic: no lymphadenopathy noted Chest Common normals: inspection of chest normal Respiratory Common normals: normal respiratory effort Effort & inspection: able to speak in complete sentences Auscultation: clear to auscultation bilaterally Cardio Common normals: regular rate and regular rhythm Rate: regular rate Rhythm: regular rhythm GI Common normals: Normal to inspection, nondistended, normoactive bowel sounds present Inspection: normal to inspection Palpation: soft Back & Pelvis Common normals: no CVA tenderness Extremity Common normals: normal to inspection and full ROM Neuro Common normals: oriented x3 Sensorium/orientation: awake, alert, oriented to person, oriented to place and oriented to time Psych Common normals: mental status grossly normal, thought process normal, cooperative, affect normal, speech normal, activity/motor behavior normal, den ies hallucinations, denies homicidal ideation and denies suicidal ideation Attitude: calm Thought process: normal thought process Results Labs Labs: Short CBC 08/02/24 Range/Units 10:50 WBC 7.8 (4.0-11.0) 10^3/uL Hgb 11.6 L (12.0-16.0) g/dL Hct 34.4 L (36.0-48.0) % Plt Count 371 (150-450) 10^3/uL OB - A/P Assessment and Plan (1) Term : (2) Group beta Strep positive: Plan admit to labor and delivery for active labor Additional Plan Induction method: artificial rupture of membranes Plan: expectant management
[2024-08-02] MEDS: OXYTOCIN/0.9 % SODIUM CHLORIDE 20 UNITS/1,000 ML PLAST..BAG 125 UNIT IV (14:24)
--- NOTE | 2024-08-02 14:36 | PM.OBPRCVD ---
Procedure Intrapartal events: None Delivery augmentation: rupture of membranes Delivery monitor: external FHT and external uterine Route of delivery: L&D Laceration Description: none Estimated blood loss (mL): 100 Anesthesia type: None Delivery date: 08/02/24 presentation: vertex Placental delivery description: Spontaneous cord description: 3 Vessels heart rate - 1 minute: 100 bpm or Greater respiratory effort - 1 minute: Spontaneous/Strong Cry muscle tone - 1 minute: Active Movement reflex response - 1 minute: Prompt Response color - 1 minute: Bluish Hands or Feet total score - 1 minute: 9 heart rate - 5 minute: 100 bpm or Greater respiratory effort - 5 minute: Spontaneous/Strong Cry muscle tone - 5 minute: Active Movement reflex response - 5 minute: Prompt Response color - 5 minute: Bluish Hands or Feet total score - 5 minute: 9
[2024-08-02] MEDS: BENZOCAINE/MENTHOL 85 GRAM SPRAY BOTTLE 1 APPLIC TOPICAL (15:23)
[2024-08-02] MEDS: GLYCERIN/WITCH HAZEL PADS 1 PAD TOPICAL (15:23)
[2024-08-02] MEDS: ACETAMINOPHEN 325 MG TABLET 650 MG PO (15:23)
[2024-08-02] MEDS: IBUPROFEN 400 MG TABLET 800 MG PO (19:08)
[2024-08-03] VITALS (8 sets, daily range): BP systolic 114–139; BP diastolic 69–84; PULSE 56–70; TEMP 36.6–37.1
[2024-08-03] MEDS: ACETAMINOPHEN 325 MG TABLET 650 MG PO ×2 (00:12→08:59)
[2024-08-03] MEDS: IBUPROFEN 400 MG TABLET 800 MG PO ×3 (04:18→20:07)
[2024-08-03 06:28] LABS: Basophils Percent Auto 0.4 % (0.2-2.0); Eosinophils Absolute Auto 0.2 10^3/uL (0.0-0.7); Eosinophils Percent Auto 1.6 % (0.9-7.0); Hematocrit 30.6 % (36.0-48.0); Immature Granulocytes Abs Auto 0.04 10^3/uL (0.00-0.03); Immature Granulocytes Pct Auto 0.4 % (0.0-0.5); Lymphocytes Absolute Auto 2.7 10^3/uL (1.2-3.8); Lymphocytes Percent Auto 28.9 % (20.5-60.0); Mean Corpuscular HGB Conc 32.7 g/dL (29.9-35.2); Mean Corpuscular Hemoglobin 28.4 pg (26.7-34.0); Mean Corpuscular Volume 86.9 fL (81.0-99.0); Mean Platelet Volume 10.2 fL (9.5-13.5); Monocytes Absolute Auto 0.8 10^3/uL (0.3-0.8); Monocytes Percent Auto 8.3 % (1.7-12.0); Neutrophils Absolute Auto 5.7 10^3/uL (1.4-6.5); Neutrophils Percent Auto 60.4 % (43.0-75.0); Platelet Count 297 10^3/uL (150-450); Red Blood Count 3.52 10^6/uL (4.20-5.40); Red Cell Distribution Width 12.9 % (11.0-15.0); White Blood Count 9.4 10^3/uL (4.0-11.0)
--- NOTE | 2024-08-03 08:00 | PM.OBPN ---
OB - PN: Subj Subjective Patient comments: no complaints and pain well controlled [place] status: doing well Exam Constitutional Vital Signs, click to edit/add: Last Vital Signs Temp 97.9 F 08/03/24 00:11 Pulse 57 L 08/03/24 07:38 Resp 14 08/03/24 00:11 BP 114/69 08/03/24 07:38 O2 Del Method Room Air 08/03/24 00:16 Documenting provider has reviewed patient's vital signs: yes Common normals: no apparent distress Cardio Common normals: regular rate and regular rhythm GI Common normals: Normal to inspection, nondistended, normoactive bowel sounds present Extremity Common normals: no clubbing, cyanosis or edema Results Labs Labs: Short CBC 08/02/24 08/03/24 Range/Units 10:50 06:11 WBC 7.8 9.4 (4.0-11.0) 10^3/uL Hgb 11.6 L 10.0 L (12.0-16.0) g/dL Hct 34.4 L 30.6 L (36.0-48.0) % Plt Count 371 297 (150-450) 10^3/uL OB - PN: A/P Assessment and Plan (1) Term : (2) Group beta Strep positive: Plan - Vaginal Delivery day: 1 Plan: routine care Time Spent with Patient Time: Total time spent is greater than 50% in coordination of care (as documented) at patient's floor/unit and/or counseling patient: Total time spent with greater than 50% in coordination of care (as documented) at patient's floor/unit and/or counseling patient: less than 15 minutes
[2024-08-03] MEDS: DOCUSATE SODIUM 100 MG CAPSULE PO ×2 (08:59→20:07)
[2024-08-04 04:23] VITALS: BP 139/85; PULSE 57
[2024-08-04 07:20] VITALS: BP 128/70; PULSE 47
[2024-08-04 07:30] VITALS: PULSE 52
--- NOTE | 2024-08-04 08:56 | P.OBPN_ITS ---
OB - PN: Subj Subjective Patient comments: no complaints [place] status: doing well feeding status: exclusively Exam Constitutional Vital Signs, click to edit/add: Last Vital Signs Temp 98.3 F 08/03/24 20:05 Pulse 52 L 08/04/24 07:30 Resp 16 08/03/24 20:05 BP 128/70 08/04/24 07:20 O2 Del Method Room Air 08/03/24 15:55 Documenting provider has reviewed patient's vital signs: yes Common normals: no apparent distress General appearance: cooperative, comfortable, well kempt and well developed Orientation/consciousness: Yes awake, Yes oriented to person, Yes oriented to place and Yes oriented to time HENMT Common normals: normocephalic Eye Common normals: EOMs intact bilaterally General eye: normal appearance of both eyes Neck & C-Spine Common normals: full ROM General: normal visual inspection Lymph Lymphatic: no lymphadenopathy noted Chest Common normals: inspection of chest normal Respiratory Effort & inspection: able to speak in complete sentences Auscultation: clear to auscultation bilaterally Cardio Common normals: regular rate and regular rhythm Rate: regular rate Rhythm: regular rhythm GI Common normals: Normal to inspection, nondistended, normoactive bowel sounds present Inspection: normal to inspection Palpation: soft Common normals: no CVA tenderness Back & Pelvis Common normals: no CVA tenderness Extremity Common normals: normal to inspection Neuro Common normals: oriented x3 Sensorium/orientation: awake, alert, oriented to person, oriented to place and oriented to time Speech: speech normal Psych Common normals: mental status grossly normal, thought process normal, cooperative, affect normal, speech normal, activity/motor behavior normal, denies hallucinations, denies homicidal ideation and denies suicidal ideation OB - PN: A/P Assessment and Plan (1) Term : (2) Group beta Strep positive: Plan discharge to home follow up with me in 2 weeks for telemed visit Plan - Vaginal Delivery day: 2 Plan: discharge home Time Spent with Patient Time: Total time spent is greater than 50% in coordination of care (as documented) at patient's floor/unit and/or counseling patient: Total time spent with greater than 50% in coordination of care (as documented) at patient's floor/unit and/or counseling patient: less than 15 minutes
[2024-08-05 14:10] LABS: Cannabinoid Positive (.); Carboxy THC Conf, MS, UR 310 ng/mL (Cutoff=10)
--- NOTE | 2024-08-05 14:42 | SWNOTE1 ---
Late Entry from 08/04/24 SW had consult for positive drug screen on admission, THC. Pt was discharged prior to SW assessing pt. SW spoke to director of [facility] who was caring for pt. This is pt's 4th child. She stated they have very good support and are caring for baby appropriately. 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 HIPAA form filled out and sent to Patricia Robbins.
--- NOTE | 2024-08-05 14:45 | SWNOTE1 ---
Report was called to [facility] CPS on 08/04/24.
== END 2024-08-04 10:30 | disposition home or self-care (01) | DRG 560 ==
PROVIDERS: Admitting Provider Midwife; Visit Provider Midwife
DX: O99.824 Streptococcus B carrier state complicating childbirth (principal); Z3A.39 39 weeks gestation of pregnancy; Z37.0 Single live birth; O99.324 Drug use complicating childbirth; F12.90 Cannabis use, unspecified, uncomplicated; Z86.16 Personal history of COVID-19
CPT/HCPCS: 36415; 59050; 59410; 80307; 80349; 85025; 85027; 86850; 86900; 86901; J0736

== ENCOUNTER 2024-08-08 07:53 | Outpatient (OUT) | payer OTHER, SELFPAY ==
--- OUTSIDE RECORDS SUMMARY | 2024-08-08 08:08 | XMS_ITS | CCD ---
Author Organization [facility] Care Team Providers Care Contract Administration Manager Name Role Phone BRAD GILES Unavailable Unavailable BRAD GILES Unavailable Unavailable MD Brad Giles Attending Provider [id number] PCP, No Primary Care Provider MD Brad Corbin Attending Provider [phone] PCP, No Primary Care Provider MD Brad Corbin Primary Care Provider MD Brad Giles Primary Care Provider MD Brad Giles Attending Provider [phone] MD Brad Giles Admit Provider Brad Giles Attending Unavailable PCP, No Primary Care Unavailable Brad Giles Attending Unavailable Tisha, Brad Primary Care Unavailable Tisha, Brad Attending Unavailable Tisha, Brad Primary Care Unavailable Tisha, Brad Attending Unavailable Tisha, Brad Primary Care Unavailable Tisha, Brad Admitting Unavailable Unavailable Primary Care Provider UnavailEleanor Olmstead Primary Care Provider [phone] CURTIS COLEERIE Angy Attending Unavailable FLORO, RUT L Referring Unavailable [...] Class(es) Dates Sig (Normalized) Sig (Original) Prenat.Vits,Kirsten,Mi p-Pmxe-Rscog (1 source) Start: 08-12-2023 take 1 tablet by mouth once daily Prenat.VitsKirsten M sy-Heol-Iinec Active 1 TAB PO Daily August 12, 2023 12:00am Orwgqpdw-Wod-Ig-FA ( 1 + IRON PO) (20 sources) Ebmsazfj-Kpn-Dn-F A ( 1 + IRON PO) Take [...] Test Name Value Interpretation Reference Range Facility ALL CBC WITH AUTO DIFFon BASOPHILS ABSOLUTE AUTO 0 N [facility] Basophils/100 WBC (Bld) 0.4 % 0.2 - 2.0 % [facility] Eosinophils/100 WBC (Bld) 1.6 % 0.9 - 7.0 % [facility] Erythrocyte distribution width (RBC) [Ratio] 12.9 % 11.0 - 15.0 % [facility] Hematocrit (Bld) [Volume fraction] 30.6 % Low 36.0 - 48.0 % [facility] Hemoglobin (Bld) [Mass/Vol] 10 g/dL Low 12.0 - 16.0 g/dL [facility] IMMATURE GRANULOCYTES ABS AUTO 0.[address] [facility] Immature granulocytes/100 WBC (Bld) 0.4 % 0.0 - 0.5 % [facility] Interpretation and review of laboratory results Abnormal [facility] LYMPHOCYTES ABSOLUTE AUTO 2.7 [facility] Lymphocytes/100 WBC (Bld) 28.9 % 20.5 - 60.0 % [facility] MCH (RBC) [Entitic mass] 28.4 pg 26.7 - 34.[address] [facility] MCHC (RBC) [Mass/Vol] 32.7 g/dL 29.9 - 35.2 g/dL [facility] MCV (RBC) [Entitic vol] 86.9 fL 81.0 - 99.[address] [facility] MONOCYTES ABSOLUTE AUTO 0.8 N [facility] Monocytes/100 WBC (Bld) 8.3 % 1.7 - 12.0 % [facility] NEUTROPHILS ABSOLUTE AUTO 5.7 [facility] Neutrophils/100 WBC (Bld) 60.4 % 43.0 - 75.0 % [facility] Platelet mean volume (Bld) [Entitic vol] 10.2 fL 9.5 - 13.5 fL [facility]2 [facility] PLT 297 [facility] RBC 3.52 Low [facility] WBC 9.4 [facility] CBC WITH PLATELET NO DI FFERENTIALon 08-02-2024 Erythrocyte distribution width (RBC) [Ratio] 12.6 % 11.0 - 15.0 % [facility] Hematocrit (Bld) [Volume fraction] 34.4 % Low 36.0 - 48.0 % [facility] Hemoglobin (Bld) [Mass/Vol] 11.6 g/dL Low 12.0 - 16.0 g/dL [facility] Interpretation and review of laboratory results Abnormal [facility] MCH (RBC) [Entitic mass] 28.6 pg 26.7 - 34.[address] [facility] MCHC (RBC) [Mass/Vol] 33.7 g/dL 29.9 - 35.2 g/dL [facility] MCV (RBC) [Entitic vol] 84.9 fL 81.0 - 99.[address] [facility] Platelet mean volume (Bld) [Entitic vol] 10.3 fL 9.5 - 13.[address] [facility] TBH PLT 371 [facility] TB RBC 4.[address] [facility] TB WBC 7.8 [facility] US OB FOLLOW UP TRANSABDOMIN AL APPROACHon [...] 2402 gm / 5 lbs, 4 oz (9060-2399 gm) [place] Normal: 2543 gm (5133-7867 gm) [place] Wt%: 34% for 34.8 wk [...] Not Available US OB GROWTHon 05-30-[address] [address] Ultrasound Report Signed Patient: ANNE GREGORY MR#: [id number] : 1995 Acct:[id number] Age/Sex: 29 / F ADM Date: 05/27/24 Loc: US Attending Dr: RUT COLE APRN, CNM Ordering Physician: RUT COLE APRN, CNM Date of Service: 05/27/24 Procedure(s): US OB growth Accession Number(s): [id number] cc: RUT COLE APRN, CNM; Physician,Non-Staff [place] [address] Patient Name: ANNE GREGORY MRN: [id number] date: 1995 Sex: F Assigned Patient Location: Current Patient Location: Accession/Order Number: [id number] Exam Date: 05/27/2024 19:00 Report Date: 05/30/2024 [...] M.D. Signed By: 05/30/24905 DD/ 2 TD/TT: Reprographics Associate: [facility] Radiology, Radiologist, - 05/31/2024 [place] [address] Ultrasound Report Signed Patient: ANNE GREGORY MR#: [id number] : 1995 Acct:[id number] Age/Sex: 29 / F ADM Date: 05/27/24 Loc: US Attending Dr: RUT COLE APRN, CNM Ordering Physician: RUT COLE APRN, CNM Date of Service: 05/27/24 Procedure(s): US OB growth Accession Number(s): [id number] cc: RUT COLE APRN, CNM; Physician,Non-Staff M.[facility] [place] [address] Patient Name: ANNE GREGORY MRN: [facility]:[id number] date: 1995 Sex: F Assigned Patient Location: US Current Patient Location: Accession/Order Number: [id number] Exam Date: 05/27/2024 19:00 Report Date: 05/30/2024 [...] M.D. Signed By: 05/30/24905 DD/ 2 TD/TT: Reprographics Associate: [facility] Radiology Study observation (narrative) [facility] OB GROWTHOrdered By: Crystal ologhaylee Radiology on 05-30-2024 [facility] Work Phone: US OB 14+ WEEKS ANATOMY [...] Interpretation and review of laboratory results Abnormal [facility] Preg Test, Ur Positive [facility] US OB < 14 WEEKS EARLYon US OB [...] probably tiny subchorionic hemorrhage. Dictated and transcribed 12/24/23/dpd This report has been electronically signed and approved by the interpreting radiologist. Electronically Signed Brad Pope M.D. 2023-12-24 16:43:34 Normal Not Available MARIJUANA, GCMS, URINEon MARIJUANA, GCMS, URINE 140 ng/mL Normal [facility] Comment on above: Result Comment: Brie gallito Metabolite detected is consistent with exposure to Marijuana (THC) and/or hemp derived products. Some jurisdictions do not include hemp within the definition of Marijuana. Limit of quantitation: Marijuana Metabolite 5 ng/mL Reference Range: negative This test was developed and its analytical performance characteristics have been determined by [employer] [place], [place]. It has not been cleared or approved by the U.S. Food and Drug Administration. This assay has been validated pursuant to the CLIA regulations and is used for clinical purposes. Test Performed by Cindy Elliott, [facility], [address] [place] [address] Jayesh Jackson M.D., Ph.D., Director of Laboratories , CLIA [id number] Performed By: #### M [facility] [id number] ####[facility] [facility] [place] [address] P.DSon 08-14-2023 P.DS [facility] [address] [place] [address] Discharge Summary Signed Patient Name: Anne Gregory [id number] Date of : 1995 Age/Sex: 28 / [...] PO DAILY Activity: may climb stairs and may shower Diet: regular diet Follow-Up Orders Follow-Up Appointments: Brad Giles MD [Primary Care Provider] - 6 Weeks Dictated By: Brad Giles MD 08/14/23799 Signed By: 08/14/23800 Cosigned By (if applicable): [id number] cc: Brad Giles MD Normal [facility] Blood erythrocytes count (nu mber/volume)Ordered By: Brad Giles on 08-13-2023 RBC (Bld) [#/Vol] 3.84 10'6/uL Low 3.85-4.88 [facility] Complete Blood Count no Diff on 08-13-2023 MCH (RBC) [Entitic mass] 29.1 pg Normal 27.8-33.2 [facility] Comment on above: Performed By: #### C BCND ####[place] [address] [place] [address] Erythrocyte distribution width (RBC) [Ratio] 12.4 % Normal 12.2-15.8 [facility] Comment on above: Performed By: #### C BCND ####[place] [address] [place] [address] Hematocrit (Bld) [Volume fraction] 33.0 % Low 34.6-44.1 [facility] Comment on above: Performed By: #### C BCND ####[place] [address] [place] [address] Hemoglobin (Bld) [Mass/Vol] 11.2 g/dL Low 11.7-14.9 [facility] Comment on above: Performed By: #### C BCND ####[place] [address] [place] [address] MCV (RBC) [Entitic vol] 85.9 fL Normal 83.0-97.[address] [facility] Comment on above: Performed By: #### C BCND ####[place] [address] [place] [address] Mean Corpuscular HGB Conc 33.9 g/dL Normal 32.7-34.8 [facility] Comment on above: Performed By: #### C BCND ####[facility] [place] [address] Platelet Count 203 10'3/uL Normal 122-359 [facility] Comment on above: Performed By: #### C BCND ####[facility] [facility] [facility] [place] [address] Platelet mean volume (Bld) [Entitic vol] 10.7 fL High 7.6-10.6 [facility] Comment on above: Performed By: #### C BCND ####[place] [address] [facility] [place] [address] Red Blood Count 3.84 10'6/uL Low 3.85-4.88 [facility] Comment on above: Performed By: #### C BCND ####[place] [address] [place] [address] White Blood Count 10.9 10'3/uL High 3.2-9.3 [facility] Comment on above: Performed By: #### C BCND ####[place] [address] [address] [facility] [place] [address] Determination of erythrocyte mean corpuscular volume (MCV)Ordered By: Brad Giles on 08-13-2023 MCV (RBC) [Entitic vol] 85.9 fL 83.0-97.4 F [facility] Histamine release from basop hils measurementOrdered By: Brad Giles on 08-13-2023 Hemoglobin (Bld) [Mass/Vol] 11.2 g/dL Low 11.7-14.9 [facility] Laboratory - Hematology and Cell countsOrdered By: Brad Giles on 08-13-2023 Erythrocyte distribution width (RBC) [Ratio] 12.4 % 12.2-15.8 [facility] MCH (RBC) [Entitic mass] 29.1 pg 27.8-33.2 [facility] MCHC (RBC) [Mass/Vol] 33.9 g/dL 32.7-34.8 [facility] Platelet mean volume (Bld) [Entitic vol] 10.7 fL High 7.6-10.6 [facility] No Panel InformationOrdered By: Brad Giles on 08-13-2023 White Blood Count 10.9 10'3/uL High 3.2-9.3 [facility] P.PNon 08-13-2023 P.PN [facility] [address] [place] [address] Progress Note Signed Patient Name: Anne Gregory [id number] Date of : 1995 Age/Sex: 28 / [...] % (Auto) 60 Lymph % (Auto) 27 [place] % (Auto) 11 Eos % (Auto) 2 Baso % (Auto) 0 Lymph # (Auto) 2.0 [place] # (Auto) 0.9 H Eos # (Auto) [...] H Neut % (Auto) Lymph % (Auto) [place] % (Auto) Eos % (Auto) Baso % (Auto) Lymph # (Auto) [place] # (Auto) Eos # (Auto) Baso # (Auto) Absolute Neutrophils PT INR APTT Membrane Rupture Opiates Screen Barbiturate Screen Phencyclidine Screen Amphetamines Screen Benzodiazepines Screen Cocaine Screen Marijuana (THC) Screen Blood Type Antibody Screen Assessment and Plan Assessment and plan (1) Term : Status: Acute (2) Active labor: Status: Acute Plan Continue routine care Dictated By: Brad Giles MD 08/13/23 0850 Signed By: 08/13/23 0852 Cosigned By (if applicable): [id number] cc: Brad Giles MD Normal [facility] Platelet count bloodOrdered By: Brad Giles on 08-13-2023 Platelets (Bld) [#/Vol] 203 10'3/uL 122-359 [facility] Amnisure ROMon 08-12-2023 Amnisure ROM Negative Normal [facility] Comment on above: Result Comment: RESU LTS CALLED TO PEG/OB BY Flora Hatch at 1505 on 08/12/23. Performed By: #### A MNI #### [facility] [address] [place] [address] Amphetamines [Presence] in U rine by Screen methodOrdered By: Brad Giles on 08-12-2023 Amphetamines Screen Ql (U) Negative [facility] Basophils Auto (Bld) [#/Vol] Ordered By: Brad Giles on 08-12-2023 Basophils (Bld) [#/Vol] 0.0 10'3/uL Low 0.1-0.2 [facility] Basophils/100 WBC Auto (Bld) Ordered By: Brad Giles on 08-12-2023 Basophils/100 WBC (Bld) 0 % 0-1 F [facility] Benzodiazepines Screen Ql (U )Ordered By: Brad Giles on 08-12-2023 Benzodiazepines Ql (U) Negative [facility] Blood prothrombin time (PT) by coagulation assayOrdered By: Brad Giles on 08-12-2023 PT Coag (Bld) [Time] 9.5 s 9.5-10.9 [facility] Cervicovaginal discharge rap id detection of placental alpha microglobulin-1 by immunoOrdered By: Brad Giles on 08-12-2023 Qndzc-7-Fzssjjdajsnmx.p lacental Ql (Vag fld) Negative [facility] Comment on above: RESULTS CALLED TO PE G/OB BY Flora Hatch at 1505 on 08/12/23. Complete Blood Count with Di ffon 04-10-2024 Basophils Absolute Auto 0.0 10'3/uL Low 0.1-0.2 [facility] Comment on above: Performed By: #### C BCD #### [facility] [address] [place] [address] Basophils/100 WBC (Bld) 0 % Normal 0-[address] [facility] Comment on above: Performed By: #### C BCD #### [facility] [address] [place] [address] Eosinophils Absolute Auto 0.1 10'3/uL Normal 0.0-0.4 [facility] Comment on above: Performed By: #### C BCD #### [place] [address] [place] [address] Eosinophils/100 WBC (Bld) 2 % Normal 2-5 [facility] Comment on above: Performed By: #### C BCD #### [place] [address] [facility] [place] [address] Erythrocyte distribution width (RBC) [Ratio] 12.4 % Normal 12.2-15.8 [facility] Comment on above: Performed By: #### C BCD #### [place] [address] [place] [address] Hematocrit (Bld) [Volume fraction] 34.5 % Low 34.6-44.1 [facility] Comment on above: Performed By: #### C BCD #### [facility] [address] [place] [address] Hemoglobin (Bld) [Mass/Vol] 11.8 g/dL Normal 11.7-14.9 [facility] Comment on above: Performed By: #### C BCD #### [place] [address] [place] [address] Lymphocytes Absolute Auto 2.0 10'3/uL Normal 0.5-3.5 [facility] Comment on above: Performed By: #### C BCD #### [facility] [address] [place] [address] Lymphocytes/100 WBC (Bld) 27 % Normal 20-35 [facility] Comment on above: Performed By: #### C BCD #### [place] [address] [place] [address] MCH (RBC) [Entitic mass] 28.9 pg Normal 27.8-33.2 [facility] Comment on above: Performed By: #### C BCD #### [place] [address] [place] [address] MCV (RBC) [Entitic vol] 84.4 fL Normal 83.0-97.[address] [facility] Comment on above: Performed By: #### C BCD #### [place] [address] [place] [address] Mean Corpuscular HGB Conc 34.2 g/dL Normal 32.7-34.8 [facility] Comment on above: Performed By: #### C BCD #### [place] [address] [place] [address] Monocytes Absolute Auto 0.9 10'3/uL High 0.2-0.8 [facility] Comment on above: Performed By: #### C BCD #### [place] [address] [place] [address] Monocytes/100 WBC (Bld) 11 % Normal 4-[address] [facility] Comment on above: Performed By: #### C BCD #### [place] [address] [place] [address] Neutrophil # 4.6 10'3/uL Normal 1.5-5.6 [facility] Comment on above: Performed By: #### C BCD #### [facility] [address] [place] [address] Neutrophils/100 WBC (Bld) 60 % Normal 41-72 [facility] Comment on above: Performed By: #### C BCD #### [place] [address] [place] [address] Platelet Count 221 10'3/uL Normal 122-359 [facility] Comment on above: Performed By: #### C BCD #### [facility] [address] [place] [address] Platelet mean volume (Bld) [Entitic vol] 10.4 fL Normal 7.6-10.6 [facility] Comment on above: Performed By: #### C BCD #### [facility] [address] [place] [address] Red Blood Count 4.09 10'6/uL Normal 3.85-4.88 [facility] Comment on above: Performed By: #### C BCD #### [facility] [address] [place] [address] White Blood Count 7.7 10'3/uL Normal 3.2-9.3 [facility] Comment on above: Performed By: #### C BCD #### [place] [address] [place] [address] Drug Screen Urineon 08-12-19 24 Amphetamine Screen Negative Normal [facility] Comment on above: Order Comment: Addit ional Information - Run specimen if pt had no care - Abruption placenta in women not known to have hypertensive disease - Known drug use and/or treatment for drug use during Urine Drug Screen = Amphetamines, Marijuana, PCP, Barbituates, Benzodiazapines, Opiates, Cocaine Performed By: #### T RIAGE #### [place] [address] [place] [address] Barbiturate Screen Negative Normal [facility] Comment on above: Order Comment: Addit ional Information - Run specimen if pt had no care - Abruption placenta in women not known to have hypertensive disease - Known drug use and/or treatment for drug use during Urine Drug Screen = Amphetamines, Marijuana, PCP, Barbituates, Benzodiazapines, Opiates, Cocaine Performed By: #### T RIAGE #### [facility] [address] [place] [address] Benzodiazepine Screen Negative Normal [facility] Comment on above: Order Comment: Addit ional Information - Run specimen if pt had no care - Abruption placenta in women not known to have hypertensive disease - Known drug use and/or treatment for drug use during Urine Drug Screen = Amphetamines, Marijuana, PCP, Barbituates, Benzodiazapines, Opiates, Cocaine Performed By: #### T RIAGE #### [facility] [address] [place] [address] Cannabinoid Screen Positive Abnormal [facility] Comment on above: Order Comment: Addit ional Information - Run specimen if pt had no care - Abruption placenta in women not known to have hypertensive disease - Known drug use and/or treatment for drug use during Urine Drug Screen = Amphetamines, Marijuana, PCP, Barbituates, Benzodiazapines, Opiates, Cocaine Performed By: #### T RIAGE #### [facility] [address] [place] [address] Cocaine Ql (U) Negative Normal [facility] Comment on above: Order Comment: Addit ional Information - Run specimen if pt had no care - Abruption placenta in women not known to have hypertensive disease - Known drug use and/or treatment for drug use during Urine Drug Screen = Amphetamines, Marijuana, PCP, Barbituates, Benzodiazapines, Opiates, Cocaine Performed By: #### T RIAGE #### [place] [address] [place] [address] Opiate Screen Negative Normal [facility] Comment on above: Order Comment: Addit ional Information - Run specimen if pt had no care - Abruption placenta in women not known to have hypertensive disease - Known drug use and/or treatment for drug use during Urine Drug Screen = Amphetamines, Marijuana, PCP, Barbituates, Benzodiazapines, Opiates, Cocaine Performed By: #### T RIAGE #### [place] [address] [place] [address] Phencyclidine Ql (U) Negative Normal [facility] Comment on above: Order Comment: Addit ional Information - Run specimen if pt had no care - Abruption placenta in women not known to have hypertensive disease - Known drug use and/or treatment for drug use during Urine Drug Screen = Amphetamines, Marijuana, PCP, Barbituates, Benzodiazapines, Opiates, Cocaine Performed By: #### T LEANDRO #### [facility] [address] [place] [address] Eosinophils/100 WBC Auto (Bl d)Ordered By: Brad Giles on 08-12-2023 Eosinophils/100 WBC (Bld) 2 % 2-5 [facility] Histamine release from basop hils measurementOrdered By: Brad Giles on 08-12-2023 Histamine release from basophils measurement 0.1 10'3/uL 0.0-0.4 [facility] INR in Blood by Coagulation assayOrdered By: Brad Giles on 08-12-2023 INR Coag (Bld) [Relative time] 0.93 {INR} 0.86-1.15 [facility] Comment on above: Suggested INR Ranges for Oral Anticoagulant Therapy Condition Recommended INR _Deep Vein Thrombosis ................... 2.0 - 3.0Acute Myocardial Infarction ............ 3.0 - 4.5Atrial Fibrillation .................... 2.0 - 3.0Cardiac Valve Replacement (tissue) ..... 2.0 - 3.0Cardiac Valve Replacement (mechanical) . 2.5 - 3.5 Laboratory - Hematology and Cell countsOrdered By: Brad Giles on 08-12-2023 Lymphocytes/100 WBC (Bld) 27 % 20-35 [facility] Monocytes Auto (Bld) [#/Vol] Ordered By: Brad Giles on 08-12-2023 Monocytes (Bld) [#/Vol] 0.9 10'3/uL High 0.2-0.8 [facility] Monocytes/100 WBC Auto (Bld) Ordered By: Brad Giles on 08-12-2023 Monocytes/100 WBC (Bld) 11 % 4-12 F [facility] Neutrophils/100 WBC Manual c nt (Bld)Ordered By: Brad Giles on 08-12-2023 Neutrophils/100 WBC (Bld) 60 % 41-72 [facility] No Panel InformationOrdered By: Brad Giles on 08-12-2023 Barbiturate Screen Negative [facility] Cocaine Screen Negative [facility] Absolute Neutrophil 4.6 10'3/uL 1.5-5.6 [facility] Lymphocytes # (Auto) 2.0 10'3/uL 0.5-3.5 [facility] P.HPon 08-12-2023 P.HP [facility] [address] [place] [address] History Physical Report Signed Patient Name: Anne Gregory [id number] Date of : 1995 Age/Sex: 28 / [...] History History Provided by: Patient Preferred Language: German Language Assistance Offered: Accepted Language Assistance Provided By: Family/Friend Usual Living Arrangement: With Spouse/Significant Other Anyone at Home Need Help While Hospitalized: No Smoking Status: Never Smoker Other Form of Tobacco Used: Previously Used Years Other Form of Tobacco Used: 2 Second Hand Tobacco Smoke Exposure: No [facility] Smoking Cessation Instructions Provided to Patient: No [...] that Affect Patient Care: No Cultural or Sabianist Modesty Issues Regarding Care by Staff of the Opposite Sex: No Sabianist Items Worn: No Other Factors Affecting Patient [...] 63 61 (more content not included)... Normal [facility] P.PCNon 08-12-2023 [place] [address] Procedure Note Signed Patient Name: Anne Gregory [id number] Date of : 1995 Age/Sex: 28 / [...] the [place] presentation of a viable male infant. cried spontaneously and required no resuscitation. And [...] Signed By: 08/12/231947 Cosigned By (if applicable): [id number] cc: Brad Giles MD Normal [facility] [facility] Partial Thromboplastin Timeo n 08-12-2023 aPTT Coag (Bld) [Time] 25.1 s Normal 24.5-30.3 [facility] Comment on above: Result Comment: aPTT Therapeutic Range = 45.1-70.7 seconds Performed By: #### P T, PTT #### [facility] [address] [place] [address] Partial thromboplastin time (PTT) in platelet poor plasmaOrdered By: Brad Giles on 08-12-2023 aPTT Coag (PPP) [Time] 25.1 s 24.5-30.3 [facility] Comment on above: aPTT Therapeutic Ran ge = 45.1-70.7 seconds Phencyclidine Screen Ql (U)O rdered By: Brad Giles on 08-12-2023 Phencyclidine Ql (U) Negative [facility] Prothrombin Time INRon 08-11 INR Coag (PPP) [Relative time] 0.93 {INR} Normal 0.86-1.15 [facility] Comment on above: Result Comment: [place] INR Ranges for Oral Anticoagulant Therapy Condition Recommended INR Deep Vein Thrombosis ................... 2.0 - 3.0 Acute Myocardial Infarction ............ 3.0 - 4.5 Atrial Fibrillation .................... 2.0 - 3.0 Cardiac Valve Replacement (tissue) ..... 2.0 - 3.0 Cardiac Valve Replacement (mechanical) . 2.5 - 3.5 Performed By: #### P T, PTT #### [facility] [address] [place] [address] PT Coag (PPP) [Time] 9.5 s Normal 9.5-10.9 [facility] Comment on above: Performed By: #### P T, PTT #### [place] [address] [id number] [place] [address] Screening cannabinoid measur ementOrdered By: Brad Giles on 08-12-2023 Cannabinoids Screen Ql (Unknown substance) Positive High [facility] Screening urine opiates dete ctionOrdered By: Brad Giles on 08-12-2023 Opiates Screen Ql (U) Negative [facility] Type and Screenon 08-12-2023 ABO and Rh group Nom (Bld) Blood group A Rh(D) positive Normal [facility] Comment on above: Performed By: #### T S #### ML , Urine Cultureon 07-31-2023 Bacteria identified Cx Nom (U) Urine Culture RESResult: INSInsignificant growth present Normal [facility] Comment on above: Performed By: #### U R #### ML , UA with Reflex Cultureon Amorphous Sediment Urine Present Normal [facility] Comment on above: Performed By: #### U AREFLEX #### [address] [place] [address] Bacteria Urine TRACE Normal [facility] Comment on above: Performed By: #### U AREFLEX #### [address] [place] [address] Squamous Epithelial Cell Urine 0-2 Normal [facility] Comment on above: Performed By: #### U AREFLEX #### [facility] [address] [place] [address] Bilirubin Urine Negative Normal Negative [facility] Comment on above: Performed By: #### U AREFLEX #### [facility] [address] [place] [address] Glucose Urine UA Negative Normal Negative [facility] Comment on above: Performed By: #### U AREFLEX #### [facility] [address] [place] [address] Ketones Ql (U) >=80 (Large) Abnormal Negative [facility] Comment on above: Performed By: #### U AREFLEX #### [facility] [address] [place] [address] Nitrite Urine Negative Normal Negative [facility] Comment on above: Performed By: #### U AREFLEX #### [facility] [address] [place] [address] Occult Blood Urine Negative Normal Negative [facility] Comment on above: Performed By: #### U AREFLEX #### [facility] [address] [place] [address] Protein Urine (Multistix) Negative Normal Negative [facility] Comment on above: Performed By: #### U AREFLEX #### [facility] [address] [place] [address] Specific [place] Urine 1.020 Normal 1.005-1.[address] [facility] Comment on above: Performed By: #### U AREFLEX #### [facility] [address] [place] [address] Urobilinogen Urine 0.2 EU/dL Normal 0.2-1.0 [facility] Comment on above: Performed By: #### U AREFLEX #### [facility] [address] [place] [address] UA with Reflex CultureOrdere d By: Brad Giles on 07-30-2023 Leukocyte esterase Test strip Ql (U) Negative Normal Negative [facility] Comment on above: Performed By: #### U AREFLEX #### [facility] [address] [place] [address] Urine appearanceOrdered By: Brad Giles on 07-30-2023 Appearance (U) Clear Normal CLEAR [facility] Comment on above: Performed By: #### U AREFLEX #### [facility] [address] [place] [address] Urine colorOrdered By: Brad Giles on 07-30-2023 Color (U) Yellow Normal YELLOW [facility] Comment on above: Performed By: #### U AREFLEX #### [facility] [address] [place] [address] pH of UrineOrdered By: Brad Giles on 07-30-2023 pH (U) 6.0 [pH] Normal 5.5-8.0 [facility] Comment on above: Performed By: #### U AREFLEX #### [facility] [address] [place] [address] Amorphous urine sedimentOrde red By: Brad Giles on 07-29-2023 Amorphous sediment LM Ql (Urine sed) Present [facility] Histamine release from basop hils measurementOrdered By: Brad Giles on 07-29-2023 Glucose (U) [Mass/Vol] Negative Negative [facility] Laboratory - Chemistry and C hemistry - challengeOrdered By: Brad Giles on 07-29-2023 Bilirubin Ql (U) Negative Negative [facility] Ketones Ql (U) >=80 (large) mg/dL Abnormal Negative [facility] Laboratory - UrinalysisOrder ed By: Brad Giles on 07-29-2023 Nitrite Ql (U) Negative Negative [facility] Protein Ql (U) Negative Negative [facility] No Panel InformationOrdered By: Brad Giles on 07-29-2023 Urine Bacteria Trace /hpf [facility] Occult blood ur QLOrdered By : Brad Giles on 07-29-2023 Hemoglobin Ql (U) Negative Negative [facility] Specific gravity Test strip (U) [Rel density]Ordered By: Brad Giles on 07-29-2023 Specific gravity (U) [Rel density] 1.020 1.005-1.030 [facility] Squamous epithelial cells de tection in urine sediment by light microscopyOrdered By: Brad Giles on 07-29-2023 Epithelial cells.squamous LM Ql (Urine sed) 0-2 /lpf [facility] Urine culture routineOrdered By: Brad Giles on 07-29-2023 Bacteria identified Cx Nom (U) [facility] Urine urobilinogen measureme ntOrdered By: Brad Giles on 07-29-2023 Urobilinogen Ql (U) 0.2 EU/dL 0.2-1.0 [facility] 04-06-20[address] [place] [address] Ultrasound Report Signed Patient Name: Anne Gregory Date of : 1995 Account #:[id number] Age/Sex: 28 / F Location: [place] Attending physician: Brad Glies MD Ordering Provider: Brad Giles MD Date [...] Dictated By: Bobby Wong MD Signed By: 04/06/234 DD/ 30 TD/TT: 04/06/231330 Reprographics Associate: KERA Exam/Order Verified? Y Exam Explained to Patient/Family? Y Was Patient Shielded? Is Patient ? Consent Form Completed? Hx Last Menstrual Period: Does Patient have a Diabetic Device? Diabetic Device Type: Was the Diabetic Device Removed? If NO: was Removal Consent form completed? Patient was informed of radiation exposure prior to scan? Verified by Technologist:VIKTORIYA [email or web address] Comment: [phone] cc: Brad Giles MD [facility] OB<[id number] 01-21-2023 OB<14WKS [place] [id number] Ultrasound Report Signed Patient Name: Anne Gregory Date of : 1995 Account #:[id number] Age/Sex: 27 / F Location: [place] Attending [...] Signed By: 01/21/23921 DD/ 8 TD/TT: 01/21/23918 Reprographics Associate: KERA Exam/Order Verified? Y Exam Explained to Patient/Family? Y Was Patient Shielded? Is Patient ? Consent Form Completed? Hx Last Menstrual Period: Does Patient have a Diabetic Device? Diabetic Device Type: Was the Diabetic Device Removed? If NO: was Removal Consent form completed? Patient was informed of radiation exposure prior to scan? Verified by Technologist:VIKTORIYA Damon Comment: [phone] cc: Brad Giles MD PCP,No [facility] DS-ESon 01-26-2017 [facility] Name: ANNE GREGORY : 1995 Unit: [id number] Age: 21 Attending Physician: BRAD GILES M.D. Pt Location: [facility] Date of Service: DISCHARGE SUMMARY DATE OF [...] occiput anterior presentation of a viable female . The cried spontaneously and required no resuscitation. [...] BRAD GILES M.D. Date trans: 01/26/17 1358 [facility] [phone] cc: [facility] CBCon 01-25-2017 Erythrocyte distribution width Auto Ratio (RBC) 13.7 % Normal 12.2-15.8 [facility] Comment on above: Performed By: #### C BCN ####[facility] # [id number] [place] [address] Erythrocytes (RBC) 3.93 10'6/uL Normal 3.85-4.88 [facility] Comment on above: Performed By: #### C BCN ####[facility] # [id number] [place] [address] Hematocrit (HCT) 33.6 % Low 34.6-44.1 [facility] Comment on above: Performed By: #### C BCN ####[facility] # [id number] [place] [address] Hemoglobin mass conc (Bld) 11.3 g/dL Low 11.7-14.9 [facility] Comment on above: Performed By: #### C BCN ####[facility] # [id number] [place] [address] MCH 28.8 pg Normal 27.8-33.2 [facility] Comment on above: Performed By: #### C BCN ####[facility] # [id number] [place] [address] MCH 33.6 g/dL Normal 32.7-34.8 [facility] Comment on above: Performed By: #### C BCN ####[facility] # [id number] [place] [address] MCV 85.7 fL Normal 83.0-97.4 [facility] Comment on above: Performed By: #### C BCN ####[facility] # [id number] [place] [address] Platelet mean volume (PMV) 9.9 fL Normal 7.6-10.6 [facility] Comment on above: Performed By: #### C BCN ####[facility] # [id number] [place] [address] Platelets 172 10'3/uL Normal 122-359 [facility] Comment on above: Performed By: #### C BCN ####[facility] # [id number] [place] [address] WBC (Leukocytes) 10.2 10'3/uL High 3.2-9.3 [facility] Comment on above: Performed By: #### C BCN ####[facility] # [id number] [place] [address] PN-ESon 01-25-2017 PN-ES [facility] Name: ANNE GREGORY : 1995 Unit: [id number] Age: 21 Attending Physician: BRAD GILES M.D. Pt Location: [facility] Date of Service: PROGRESS NOTE DATE SEEN: [...] WILLA GILES M.D. Date trans: 01/26/17 0458 [facility] [phone] cc: Normal [facility] HIS-ESon 01-24-2017 HIS-ES [facility] Name: ANNE GREGORY : 1995 Unit: [id number] Age: 21 Attending Physician: BRAD GILES M.D. [...] 0700 BRAD GILES M.D. Date Dict: 01/24/17 1451 BRAD GILES M.D. Date trans: 01/25/17 1707 [facility] [phone] cc: [facility] Addendum Name: ANNE GREGORY : 1995 Unit #: [id number] Age: 21 Attending Physician: BRAD GILES M.D. Pt Location: [facility] Date of Service: PAST HISTORY: See OB record. FAMILY HISTORY: See OB record. SOCIAL HISTORY: See OB record SYSTEMS REVIEW: No history of blurred vision. Electronically Signed by: BRAD GILES M.D. 01/26/17 0700 __ BRAD GILES M.D. Date Dict: 01/24/17 1451 BRAD GILES M.D. Date Trans: 01/25/17 1707 [facility] [phone] cc: [facility] 01-24-2017 [facility] Name: ANNE GREGORY : 1995 Unit: [id number] Age: 21 Attending Physician: BRAD GILES M.D. Pt Location: [facility] Date of Service: PROGRESS NOTE DELIVERY NOTE [...] blood loss was 300 mL. Mother and are recovering in the birthing suite without complications. Electronically Signed by: BRAD GILES M.D. 01/26/17 0700 BRAD GILES M.D. Date Dict: 01/24/17 1658 BRAD GILES M.D. Date trans: 01/25/17 1901 [facility] [phone] cc: Normal [facility] Vital Signs Date Time Vital Sign Value Performing Clinician Facility 07-05-2024 09:37-0500 Body mass index (BMI) [Ratio] 24.43 kg/m2 Rut Floro CNM Work Phone: [facility] 07-05-2024 09:37-0500 Body weight 70.76 kg Rut Floro CNM Work Phone: [facility] 07-05-2024 09:37-0500 Diastolic blood pressure 70 mm[Hg] Rut Floro CNM Work Phone: [facility] 07-05-2024 09:37-0500 Systolic blood pressure 110 mm[Hg] Rut Floro CNM Work Phone: [facility] 06-14-2024 11:31-0500 Body mass index (BMI) [Ratio] 23.96 kg/m2 Rut Floro CNM Work Phone: [facility] 06-14-2024 11:31-0500 Body weight 69.4 kg Rut Floro CNM Work Phone: [facility] 06-14-2024 11:31-0500 Diastolic blood pressure 70 mm[Hg] Rut Floro CNM Work Phone: [facility] 06-14-2024 11:31-0500 Systolic blood pressure 108 mm[Hg] Rut Floro CNM Work Phone: [facility] 05-09-2024 18:06-0500 Body mass index (BMI) [Ratio] 25.37 kg/m2 Rut Floro CNM Work Phone: [facility] 05-09-2024 18:06-0500 Body weight 73.48 kg Rut Floro CNM Work Phone: [facility] 05-09-2024 18:06-0500 Diastolic blood pressure 70 mm[Hg] Rut Floro CNM Work Phone: [facility] 05-09-2024 18:06-0500 Systolic blood pressure 110 mm[Hg] Rut Floro CNM Work Phone: [facility] 04-04-2024 16:35-0500 Body mass index (BMI) [Ratio] 24.28 kg/m2 Rut Floro CNM Work Phone: [facility] 04-04-2024 16:35-0500 Body weight 70.31 kg Rut Floro CNM Work Phone: [facility] 04-04-2024 16:35-0500 Diastolic blood pressure 70 mm[Hg] Rut Floro CNM Work Phone: [facility] 04-04-2024 16:35-0500 Systolic blood pressure 112 mm[Hg] Rut Floro CNM Work Phone: [facility] 03-07-2024 16:26-0500 Body mass index (BMI) [Ratio] 24.43 kg/m2 Rut Floro CNM Work Phone: [facility] 03-07-2024 16:26-0500 Body weight 70.76 kg Rut Floro CNM Work Phone: [facility] 03-07-2024 16:26-0500 Diastolic blood pressure 80 mm[Hg] Rut Floro CNM Work Phone: [facility] 03-07-2024 16:26-0500 Systolic blood pressure 120 mm[Hg] Rut Floro CNM Work Phone: [facility] 02-08-2024 17:25-0400 Body mass index (BMI) [Ratio] 23.96 kg/m2 Rut Floro CNM Work Phone: [facility] 02-08-2024 17:25-0400 Body weight 69.4 kg Rut Floro CNM Work Phone: [facility] 02-08-2024 17:25-0400 Diastolic blood pressure 74 mm[Hg] Rut Floro CNM Work Phone: [facility] 02-08-2024 17:25-0400 Systolic blood pressure 120 mm[Hg] Rut Cole CNM Work Phone: [facility] 12-23-2023 10:46-0400 Body height 170.2 cm Rut Cole CNM Work Phone: [facility] 12-23-2023 10:33-0400 Body mass index (BMI) [Ratio] 24.59 kg/m2 Rut Cole CNM Work Phone: [facility] 12-23-2023 10:33-0400 Body weight 71.22 kg Rut Cole CNM Work Phone: [facility] 08-14-2023 11:10-0400 Diastolic blood pressure 87 mm[Hg] MD Brad Giles Work Phone: [facility] 08-14-2023 11:10-0400 Systolic blood pressure 137 mm[Hg] MD Brad Giles Work Phone: [facility] 08-14-2023 08:21-0400 Body temperature 98.2 [degF] MD Brad Giles Work Phone: [facility] 08-14-2023 08:21-0400 Heart rate 66 /min MD Brad Giles Work Phone: [facility] 08-14-2023 08:21-0400 Respiratory rate 16 /min MD Brad Giles Work Phone: [facility] 08-12-2023 15:32-0400 Body height 167.64 cm MD Brad Giles Work Phone: [facility] 08-12-2023 15:32-0400 Body weight 78.1 kg MD Brad Giles Work Phone: [facility] 07-29-2023 22:14-0400 Body height 167.64 cm MD Brad Giles Work Phone: [facility] 07-29-2023 22:14-0400 Body weight 77.56 kg MD Brad Giles Work Phone: [facility] 07-29-2023 22:13-0400 Diastolic blood pressure 78 mm[Hg] MD Brad Giles Work Phone: [facility] 07-29-2023 22:13-0400 Heart rate 77 /min MD Brad Giles Work Phone: [facility] 07-29-2023 22:13-0400 Systolic blood pressure 126 mm[Hg] MD Brad Giles Work Phone: [facility] 07-29-2023 22:08-0400 Body temperature 98.4 [degF] MD Brad Giles Work Phone: [facility] 07-29-2023 22:08-0400 Respiratory rate 16 /min MD Brad Giles Work Phone: [facility] Encounters Encounter Date Encounter Type Care Provider Facility Start: 08-03-2024 End: 08-03-2024 Clinisync Result Encounter Rut L Floro CNM Work Phone: [facility] Unsolicited Start: 08-03-2024 End: 08-03-2024 Clinisync Result Encounter Rut L Floro CNM Work Phone: [facility] Unsolicited Start: 08-02-2024 End: 08-02-2024 Clinisync Result Encounter Rut L Floro CNM Work Phone: [facility] Unsolicited Start: 08-02-2024 End: 08-02-2024 Clinisync Result Encounter Rut L Floro CNM Work Phone: [facility] Unsolicited Start: 07-26-2024 End: 07-26-2024 ambulatory RUT L [...] Evaluation and management of inpatient Brad Giles Facility:[facility] Start: 08-12-2023 End: 08-14-2023 Evaluation and management of inpatient MD Brad Giles Work Phone: [facility]-OB Department Start: 07-29-2023 End: 07-30-2023 ambulatory MD Brad Giles Work Phone: [facility] Work Phone: Start: 07-29-2023 End: 07-29-2023 Patient encounter procedure MD Brad Giles Work Phone: [facility]-OB Department Outpatient Start: 04-06-2023 End: 04-06-2023 ambulatory Brad Tisha Facility:[facility] Start: 04-06-2023 End: 04-06-2023 ambulatory No PCP [facility] Work Phone: Start: 04-06-2023 End: 04-06-2023 Patient encounter procedure No PCP [facility]-Ultrasound Start: 01-20-2023 End: 01-20-2023 ambulatory Brad Giles Facility:[facility] Start: 01-20-2023 End: 01-20-2023 ambulatory No PCP [facility] Work Phone: Start: 01-20-2023 End: 01-20-2023 Patient encounter procedure No PCP [facility]-Ultrasound Start: 01-24-2017 End: 01-25-2017 Evaluation and management of inpatient BRAD GILES Facility:[facility] Procedures Date Procedure Procedure Detail Performing Clinician Start: 08-03-2024 ALL CBC WITH AUTO DIFF Rut L Floro CNM Work Phone: Start: 08-02-2024 [facility] CBC WITH PLATEL ET NO DIFFERENTIAL Rut L Floro CNM Work Phone: Start: 05-30-2024 US OB GROWTH Rut L Floro CNM Work Phone: Start: 12-23-2023 Urine test visual color cmprsn meths Rut L Floro CNM Work Phone: Start: 08-13-2023 Blood count hematocrit [...] Treatment Date Care Activity Detail Author Start: 01-02-2025 Influenza vaccination Influenz a Vaccine (Season Ended) [facility] Start: 07-20-2024 End: 07-20-2024 Patient encounter procedure 07/20/2024 2:45 PM EDT Routine [facility] [address] [facility] [address] Rut Cole, CNM [address] [place] [address] [facility] Start: 07-12-2024 End: 07-12-2024 Patient encounter procedure 07/12/2024 9:00 AM EDT Routine [facility] [address] [facility] [address] [facility] Start: 06-14-2024 End: 06-14-2024 Patient encounter procedure 06/14/2024 11:30 AM EST Routine [facility] [address] [facility] [address] Rut Cole, CNM [address] [place] [address] Arrived [facility] Comment on above: Arrived Start: 06-07-2024 End: 06-07-2024 Patient encounter procedure 06/07/2024 9:30 AM EST Routine [facility] [address] [facility] [place] [address] Rut Cole, CNM [address] [place] [address] [facility] Start: 05-09-2024 End: 05-09-2024 Patient encounter procedure 05/09/2024 6:30 PM EST Routine [facility] [address] [facility] [address] Rut Cole, CNM [address] [place] [address] Arrived [facility] Comment on above: [...] AM EST Routine [facility] [address] [place] [address] Rut Cole, CNM [address] [place] [address] [facility] Start: 04-04-2024 End: 04-04-2024 Patient encounter procedure [facility] Comment on above: Arrived Start: 03-21-2024 End: 03-21-2024 Professional / ancillary services management 03/21/2024 5:00 PM EST Ancillary Procedure [facility] [address] [address] [facility] Start: 03-07-2024 [...] PM EDT Routine [facility] [address] [facility] [id number] Rut Cole, [facility] [address] [place] [address] Arrived [facility] Comment on above: Arrived Start: 01-25-2024 End: 01-25-2024 Patient encounter procedure 01/25/2024 2:00 PM EDT Routine [facility] [address] [facility] [id number] Rut Cole, [facility] [address] [place] [address] [facility] Start: 01-03-2024 Influenza vaccination Influenza Vacc ine (#1) [facility] Start: 12-24-2023 End: 12-23-2024 Bacteria identified in Urine by Culture Urine culture Microbiology Routine Amenorrhea examination or test, positive result Expected: 12/24/2023 (Approximate), Expires: 12/23/2024 [facility] Comment on above: Expected: 12/24/2023 (Approximate), Expires: 12/23/2024 Start: 12-24-2023 End: 12-23-2024 DRUG TOX MONITORIGN 6 W/ CONF,URINE DRUG TOX MONITORIGN 6 W/ CONF,URINE Lab Routine Amenorrhea examination or test, positive result Expected: 12/24/2023 (Approximate), Expires: 12/23/2024 [facility] Comment on above: Expected: 12/24/2023 (Approximate), [...] EDT Ancillary Procedure [facility] [address] [address] [facility] Start: 12-23-2023 End: 12-23-2023 ambulatory 12/23/2023 10:30 AM EDT Initial [facility] [address] [place] [address] Rut Cole, GILM [address] [place], [place] [id number] Arrived [facility] Comment on above: Arrived Start: 08-14-2023 Patient discharge [facility] Start: 08-13-2023 Consultation [facility] Start: 08-12-2023 Hospital admission [facility] Start: 08-12-2023 Administrative procedure [facility] Start: 07-29-2023 Patient discharge [facility] Start: 07-29-2023 Bacteria identified in Urine by Culture [facility] Start: 01-20-2023 Diagnostic ultrasoun d of gravid uterus [facility] ABO/Rh ABO/Rh Lab Routi ne Amenorrhea examination or test, positive result Ordered: 12/24/2023 [facility] Comment on above: Ordered: 12/24/2023 Antibody screen Antibody screen Lab Routine Amenorrhea examination or test, positive result Ordered: 12/24/2023 [facility] Comment on above: Ordered: 12/24/2023 CBC panel - Blood by Automated count CBC Lab Routine Amenorrhea examination or test, positive result Ordered: 12/24/2023 [facility] Comment on above: Ordered: 12/24/2023 Hemoglobin A1c/Hemoglobin.total in Blood Hemoglobin A1c Lab Routine Amenorrhea examination or test, positive result Ordered: 12/24/2023 [facility] Comment on above: Ordered: 12/24/2023 Hepatitis B virus salazar rface Ag [Presence] in Serum or Plasma by Immunoassay Hepatitis B surface antigen Lab Routine Amenorrhea examination or test, positive result Ordered: 12/24/2023 [facility] Work Phone: Comment on above: Ordered: 12/24/2023 Hepatitis C virus Ab [Presence] in Serum or Plasma by Immunoassay Hepatitis C antibody Lab Routine Amenorrhea examination or test, positive result Ordered: 12/24/2023 [facility] Comment on above: Ordered: 12/24/2023 HIV-1/HIV-2 antigen/antibody combination immunoassay HIV-1 and HIV-2 antibodies Lab Routine Amenorrhea examination or test, positive result Ordered: 12/24/2023 [facility] Comment on above: Ordered: 12/24/2023 Patient Education [facility] Work Phone: Patient referral [facility] Work Phone: Reagin Ab [Presence] in Serum by RPR RPR Lab Routine Amenorrhea examination or test, positive result Ordered: 12/24/2023 [facility] Comment on above: Ordered: 12/24/2023 Rubella antibody, IgG Rubella an tibody, IgG Lab Routine Amenorrhea examination or test, positive result Ordered: 12/24/2023 [facility] Comment on above: Ordered: 12/24/2023 Urine substance measurement [facility] Immunizations Immunization Date Immunization Notes Care Provider Fa francis 06-25-2023 tetanus toxoid, redu leigh diphtheria toxoid, and acellular pertussis vaccine, adsorbed MD Brad Giles Work Phone: [facility] Payers Date Payer Category Payer Medicaid [facility] MEDICAID [place] MED[place] [id number] 2023-Present [address] [place] [address] [id number] 2023 Medicaid (Managed Care) [facility] MEDICAID [id number] 2023 Self-pay 2023 Unknown [id number] 1995 Unknown [id number] 2.840.1.207716.3.579.2. 1186 1995 Unknown [id number] .840.1.900256.3.579.2. 1186 1995 Unknown [id number] 2.16840.1.678344.3.579.2. 1186 1995 Unknown [id number] 2.16840.1.663984.3.579.2. 1186 1995 Unknown [id number] 2.16840.1.118558.3.579.2. 1259 1995 Unknown [id number] 2.16840.1.288904.3.579.2. 1259 1995 Unknown [id number] 2.16.840.1.943123.3.579.2. 9 1995 Unknown [id number] 2.16.840.1.785594.3.579.2. 9 1995 Unknown [id number] 2.16.840.1.508152.3.579.2. 9 1995 Unknown [id number] 2.16.840.1.277522.3.579.2. 9 1995 Unknown [id number] 2.16.840.1.749392.3.579.2. 9 1995 Unknown [id number] 2.16.840.1.026151.3.579.2. 1258 1995 Unknown [id number] 2.16.840.1.491716.3.579.2. 1258 1995 Unknown [id number] 2.16.840.1.267263.3.579.2. 9 1995 Unknown [id number] 2.16.840.1.458602.3.579.2. 9 1995 Unknown [id number] 2.16.840.1.071242.3.579.2. 9 Social History Date Type Detail Facility Tobacco smoking stat us NVIS Unknown if ever smoked [facility] Work Phone: Start: 1995 Sex Assigned At Female F [facility] Start: 08-12-2023 End: 12-23-2023 Tobacco smoking status NHIS Never smoked tobacco (finding) [facility] Start: 08-12-2023 German [facility] Start: 08-12-2023 0 [facility] Start: 08-12-2023 No Prior Services [facility] Start: 08-12-2023 Marijuana (Any Form) Fu [facility] Start: 08-12-2023 Previously Used [facility] Start: 08-12-2023 With Spouse/Si gnificant Other [facility] Start: 12-23-2023 Tobacco use and exposure Smokeless tobacco non-user [facility] Start: 12-23-2023 End: 08-02-2024 Alcoholic beverage intake Ex-drinker (finding) [facility] Start: 12-23-2023 History of Social function [facility] Start: 12-23-2023 Tobacco use panel [facility] Start: 11-16-2023 [facility] Start: 1995 Sex assigned at Not on file [facility] Healthcare Goals Date Patient Goal Desired Activity /State Functional Status Date Assessment Result Facility 08-14-2023 Functional status Independent [facility] Work Phone: 08-12-2023 Functional status Independent [facility] Work Phone: Mental Status Date Assessment Result Facility 08-12-2023 Cognitive function No Impairment [facility] Work Phone: Clinical Notes 08-12-2023 to 07-05-2024 GIL Dumont - 07/05/2024 10:15 AM ESTRut Cole, GIL - 06/14/2024 11:30 AM ESTRut Cole CNM - 04/04/2024 4:30 PM ESTValeriGIL Navarro - 03/07/2024 4:30 PM EST Note Date [...] for routine visit. documented in this encounter [facility] 06-14-2024 History of Presen t illness Narrative [...] a routine visit. documented in this encounter [facility] 04-04-2024 History of Presen t illness Narrative [...] a routine visit. documented in this encounter [facility] 03-07-2024 History of Presen t illness Narrative [...] for routine visit. documented in this encounter [facility] 02-08-2024 History of Presen t illness Narrative [...] at 28 s documented in this encounter [facility] 12-23-2023 History of Presen t illness Narrative Subjective Anne Gregory is a 28 y.o. at 11w4d with a working estimated date of delivery of 07/09/2024, by Last Menstrual Period who presents for an initial visit. This is unplanned. No care child study team director to display OB History Para Term AB [...] also given office phone number and [facility] number to call in case of an emergency or after hours needs. PVU and all questions answered. We did discuss place of delivery. Patient should plan to go to [facility] for all services unless an emergency and they need to go to the closest ER. We can make other arrangements possibly if patient would like to deliver at another facility but I did explain I am now at [facility] 100% of the time and would like to do all deliveries there. documented in this encounter [facility] 08-14-2023 Discharge summary Note Date/Time August 14, 2023 8:0 1am [place] [address] Discharge Summary Signed Patient Name: Anne Gregory Medical Rec ord #: [id number] Date of : 1995 Account #: [id number] Age/Sex: 28 / F Location: OB Department [...] 100 mg tablet 100 mg PO DAILY prenat.vits,kirsten,ntd-ogni-lpbws Tablet 1 tab PO DAILY Activity: may climb stairs and may shower Diet: regular diet Follow-Up Orders Follow-Up Appointments: Brad Giles MD [Primary Care Provider] - 6 Weeks Dictated By: Brad Giles MD 08/14/23 0800 Signed By: <Electronically signed by Brad Giles MD> 08/14/23 0801 Cosigned By (if applicable): [id number] cc: Brad Giles MD [facility] Work Phone: [phone] Evaluation note* Author Brad Giles [facility] Authored August 14, 2023 7:5 9am Patient is a 28-year-old gra beatriz 3 para 2 a positive white female who was admitted with active labor. She had artificial rupture membranes performed at 6 cm dilatation and progressed to spontaneous vaginal delivery without complications. course was uncomplicated. hemoglobin was 11.2. Patient was discharged in good condition. [facility] Work Phone: [phone] Progress note Author Brad Giles [facility] August 13, 2023 8:52am Note Date/Time August 13, 2023 8:5 2am [facility] [address] [address] Progress Note Signed Patient Name: Anne Gregory Medical Rec ord #: [id number] Date of : 1995 Account #: [id number] Age/Sex: 28 / F Location: OB Department [...] % (Auto) 60 Lymph % (Auto) 27 [place] % (Auto) 11 Eos % (Auto) 2 Baso % (Auto) 0 Lymph # (Auto) 2.0 [place] # (Auto) 0.9 H Eos # (Auto) [...] H Neut % (Auto) Lymph % (Auto) [place] % (Auto) Eos % (Auto) Baso % (Auto) Lymph # (Auto) Screven # (Auto) Eos # (Auto) Baso # [...] <Electronically signed by Brad Giles MD> 08/13/23 9539 Cosigned By (if applicable): [id number] cc: Brad Giles MD [facility] Work Phone: [phone] 395-152204-10-2024 History and physical note Author Brad Giles [facility] August 12, 2023 6:54pm Note Date/Time August 12, 2023 6:5 4pm [facility] [address] [place] [address] History & Physical Report Signed Patient Name: Anne Gregory Medical Rec ord #: [id number] Date of : 1995 Account #: [id number] Age/Sex: 28 / F Location: OB Department [...] Home Medications Medication Instructions Recorded Confirmed Type prenat.vits,kirsten,cmi-ngzy-pxfrp 1 tab PO DAILY 08/12/23 08/12/23 History [...] History History Provided by: Patient Preferred Language: German Language Assistance Offered: Accepted Language Assistance Provided By: Family/Friend Usual Living Arrangement: With Spouse/Significant Other Anyone at Home Need Help While Hospitalized: No Smoking Status: Never Smoker Other Form of Tobacco Used: Previously Used Years Other Form of Tobacco Used: 2 Second Hand Tobacco Smoke Exposure: No [facility] Smoking Cessation Instructions Provided to Patient: No [...] Level of School Completed/Degree Received: High School Cultural/Personal/Sabianist Beliefs that Affect Patient Care: No Cultural or Sabianist Modesty Issues Regarding Care by Staff of the Opposite Sex: No Sabianist Items Worn: No Other Factors Affecting Patient [...] thod Room Air Routine HEENT Exam: Comments: PERRLA, EOMI Routine Neck Exam: Comments: Supple without masses Routine Respiratory Exam: Comments: Clear to auscultation Routine Cardiovascular Exam: Comments: Regular rate and rhythm without murmur Routine Abdominal Exam: Comments: Gravid with fundal height of 39 cm Routine Exam: Comments: Cervix 6 cm dilated with infant in vertex presentation. Artificial rupture of membranes [...] % (Auto) 60 Lymph % (Auto) 27 [place] % (Auto) 11 Eos % (Auto) 2 Baso % (Auto) 0 Lymph # (Auto) 2.0 Scre[place] # (Auto) 0.9 H Eos # (Auto) [...] delivery. Dictated By: Brad Giles MD 08/12/23 4000 Signed By: <Electronically signed by Brad Giles MD> 08/12/23 1854 Cosigned By (if applicable): [id number] cc: Brad Giles MD [facility] Work Phone: [phone] [facility] Evaluation noteNo assessment information availableSelect [facility] Work Phone: Evaluation note* Diagnosis Encounter for [...] [facility] of [facility]* Rut Cole CNM - 05/09/2024 6:30 PM EST Subjective No [...] talk jeet Luis, as she would like [facility] care for her . Continue vitamin. Labs reviewed. Rhogam GTT next week Follow up in 2 weeks for a routine visit. [facility] Purpose Family History Relationship Condition Age at Onset Recorded Date/T selin mother Anxiety Unknown Bipolar I disorder Unknown father Alcohol abuse Unknown father Diabetes mellitus Unknown Anxiety Unknown sister Anxiety Unknown son Low platelet count Unknown Advance Directives Advance Directive Response Recorded Date/ Time Advance Directives No August 11, 3:11pm Chief Complaint and Reason for Visit Chief Complaint z34.91 care 1st trimester Chief Complaint z34.91 care 1st trimester Z34.92 care 2nd trimester Chief Complaint contractions Chief Complaint contractions Reason for Visit Active labor Term Additional Source Comments INFORMATION SOURCE (unrecogn ized section and content) DATE CREATED AUTHOR 10/27/2017 [facility] DATE CREATED AUTHOR AUTHOR'S ORGANIZ ATION 08/16/2023 [facility] DATE CREATED AUTHOR AUTHOR'S ORGANIZ ATION 07/31/2024 [facility] EPIC Care Teams (unrecognized sec [...] Provide r, Admit Provider, Attending Provider Active Contract Administration Manager Relationship Specialty Start Date End Date Eleanor Vivas Patrick [facility] [address] [place] [address] PCP - General 12/23/23 Goals (unrecognized section [...] BE BASED ON THE PRIMARY CLINICAL RECORDS. [facility]. provides no warranty or guarantee of the accuracy or completeness of information in this document.
[2024-08-08 12:35] VITALS: BP 129/81; PULSE 68; TEMP 36.7; O2SAT 96
--- NOTE | 2024-08-08 13:41 | PC.NURSE ---
1230- Pt. arrives with and significant other, states both doing very well. Assessment WNL, denies any questions, concerns or needs. Has followed up appt scheduled for next week with Linda. Encouraged to call with any questions or concerns with herself or infant, verbalizes understanding 1300- Discharged home in stable condition.
== END 2024-08-08 07:54 | disposition home or self-care (01) ==
LOC: FBCO 07:54
PROVIDERS: Visit Provider Obstetrics & Gynecology
DX: Z39.1 Encounter for care and examination of lactating mother (principal)